=== PATIENT | female | born 1935 | race Caucasian/White ===

== ENCOUNTER 2016-07-06 10:37 | Inpatient (IN) | payer MEDICARE ==
[2016-07-06] MEDS ORDERED: NS 1,000 ML IV ONE (10:47)
[2016-07-06] MEDS ORDERED: DILTIAZEM 25 MG/5 ML VIAL IV ONE (10:59)
--- NOTE | 2016-07-06 11:04 | EDPRACDOC ---
- General Information Chief Complaint: Neuro Symptoms/Deficits Stated Complaint: FALL At HOME Time Seen by Provider: 07/06/16 10:38 Information Source: Patient, Photo Checker Mode Of Arrival: Car Home Medications: Home Medications Glipizide [Glucotrol] 5 mg PO BIDAC 04/10/13 Biotin 1 mg PO DAILY 04/02/16 ClonazePAM [Klonopin] 0.5 mg PO BID PRN 04/02/16 Levothyroxine [Synthroid, Levoxyl] 75 mcg PO DAILY 04/02/16 Liraglutide [Victoza 18 mg/3 ml Pen] 1.2 mg SQ DAILY@0800 04/02/16 Sertraline HCl [Zoloft] 75 mg PO DAILY 04/02/16 Valsartan [Diovan] 160 mg PO BID 04/02/16 Apixaban [Eliquis] 5 mg PO BID 05/31/16 Atorvastatin Calcium [Lipitor] 20 mg PO QHS 05/31/16 Diclofenac Sodium [Voltaren 1% Topical Gel] 2 gm TOP QID 05/31/16 Diltiazem HCl [Diltiazem 24Hr ER] 240 mg PO DAILY 05/31/16 Furosemide [Lasix] 40 mg PO BID 05/31/16 Potassium Chloride 20 meq PO DAILY 05/31/16 Insulin Glargine,Hum.rec.anlog [Annamaria Rdz] 20 unit SQ HS #3 insuln.pen Metoprolol Tartrate 25 mg PO BID 07/06/16 Allergies/Adverse Reactions: Allergies Allergy/AdvReac Type Severity Reaction Status Date / Time ephedrine [Ephedrine] Allergy Unknown Unknown/See Verified 07/06/16 16:28 Comments ketorolac tromethamine Allergy Unknown Unknown/See Verified 07/06/16 16:28 [From Toradol] Comments oxycodone HCl [From Endocet] Allergy Unknown Unknown/See Verified 07/06/16 16:28 Comments OXYCODONE WITH ACETAMINOPHIN Allergy Unknown Unknown/See Uncoded 07/06/16 16:28 Comments STERAPRED Allergy Unknown Unknown/See Uncoded 07/06/16 16:28 Comments - History of Present 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 STATES SHE REMEMBERS GOING TO THE BATHROOM THIS AM BUT THEN DOES NOT REMEMBER WALKING TO THE KITCHEN. PT WAS FOUND ON THE FLOOR BY WITH LEFT SHOULDER PAIN, CONTUSION TO RIGHT ELBOW AND CONTUSION TO FOREHEAD. PT REMEMBERS NONE OF THE ACTIVITIES LEADING TO THE FALL OR THE FALL. PT AWAKE, ALERT AND ORIENTED UPON ARRIVAL. 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 Denies: Depression, Substance Use Disorder Systemic History: Reports: Diabetes, Hypothyroidism Surgical History: Reports: Cholecystectomy, Hysterectomy, Cardiac Catheterization - Family Medical History Reports: Hypertension (father), Cancer (sister breast, mother ovarian), Cardiac Disorders (father) - Social Medical History Smoking Status: Never smoker Social History: Denies: Substance Use Disorder EDM Review of Systems - Review of Systems ROS Negative Except as Marked: Yes All systems reviewed and were negative except as marked - Physical Exam Constitutional: Alert Oriented to: Time, Person, Place Last recorded Vital Signs: Oxygen Pulse Oxygen Saturation O2 Device Oxygen Flow Rate Fraction of Inspired Oxygen ( FIO2) - HEENT Head: Abrasion, Swelling, Tender Eye Exam: Normal (PERRL, EOMI, Sclera white) Oropharynx: Normal (Pharynx:Moist without exudate,Gums-no swelling) Tympanic Membrane: Normal Nose: No Symptoms Reported (septum midline) Neck: Normal (FROM, trachea at midline) - Respiratory/Cardiovascular Respiratory: Normal - CTA (BBS clear to auscultation without adventitious sounds ) Cardiovascular: Tachycardia, Irregular - GI Auscultation: Normal (NABS) Palpation: Normal (Soft,No rebound or guarding, non distended) Tenderness: Non tender Redding's Sign: Negative Rectal Exam: Deferred - Musculoskeletal Back: Normal (Non-Tender) Extremities: Other (ABRASION NOTED TO RIGHT ELBOW, PAIN IN LEFT SHOULDER.) - Integumentary Skin: Normal, Warm, Dry Lymphatics: Normal (no adenopathy) - Neurologic Memory Impaired: Normal Motor Function: Normal (Normal tone, Pulses 2+ No cyanosis or edema, FROM) Cranial Nerve: Normal (CN II-X11 intact sensation, strength 5/5) Cerebellar: Normal Mood Description: Normal Perception: Normal - Differential Diagnosis Dehydration, Electrolyte Disorder, Other - Results 07/06/16 11:00 07/06/16 11:00 - EKG EKG #1 EKG Time: 10:50 -: Yes EKG interpreted by me Rate: bpm: [address] [place]: Normal Rhythm: Afib (WITH RVR) Block: None Hypertrophy: None ST: Nonsp - Departure Disposition: Admit IP To This Hospital Condition: Stable Final Diagnosis: Syncope and collapse Humerus distal fracture Qualifiers: Encounter type: initial encounter Fracture type: closed Fracture morphology: unspecified fracture morphology Laterality: left Qualified Code(s): S42.402A - Unspecified fracture of lower end of left humerus, initial encounter for closed fracture Education/Counseling Given To: Patient Education/Counseling Given Regarding: Diagnosis, Treatment, Prognosis, Follow Up Decision to Admit Time: 16:30 Decision to admit date: 07/06/16 Decision to admit: from ED - Physician Consulted Hospitalist Time Called: 16:30 Provider Called: Yomaira Jorgensen Time Hospital Cleaning Specialist Returned Call: 16:30
[2016-07-06 11:27] LABS: AUTOMATED BASOPHIL 0.5 % (0-2); AUTOMATED EOSINOPHIL 1.2 % (0-5); AUTOMATED LYMPH 14.1 % (17-44); AUTOMATED MONOCYTE 6.2 % (3-10); MPV 8.6 fL (7.4-10.4)
[2016-07-06 11:56] LABS: BLOOD UREA NITROGEN 50 MG/DL (7-17); CALCIUM 9.6 MG/DL (8.4-10.2); CALCULATED OSMOLALITY 278 MOs/Kg (270-290); CHLORIDE 92 mEq/L (98-107); CPK TOTAL WITH POSSIBLE MB 24 IU/L (30-134); GLUCOSE 153 MG/DL (70-99); SODIUM LEVEL 136 mEq/L (137-146); TOTAL PROTEIN 7.6 G/DL (6.3-8.2)
--- NOTE | 2016-07-06 12:02 | DIRPT ---
CLINICAL DATA: Syncope and fall today. Initial encounter. EXAM: CT HEAD WITHOUT CONTRAST TECHNIQUE: Contiguous axial images were obtained from the base of the skull through the vertex without intravenous contrast. COMPARISON: Head CT scan 04/10/2013. Brain MRI 04/12/2013. FINDINGS: Remote left cerebellar infarct is identified. The brain is atrophic with some chronic microvascular ischemic change. No evidence of acute intracranial abnormality including hemorrhage, infarct, mass lesion, mass effect, midline shift or abnormal extra-axial fluid collection is seen. Small, chronic right mastoid effusion is identified. Imaged paranasal sinuses and mastoid air cells are otherwise clear. The calvarium is intact. IMPRESSION: No acute abnormality. Remote left cerebellar infarct. Atrophy and chronic microvascular ischemic change. Electronically Signed By: Dillon Islas M.D. On: 07/06/2016 11:59
[2016-07-06 12:11] LABS: PARTIAL THROMB. TIME 24.7 SEC (22-35); PT-INR 1.1
--- NOTE | 2016-07-06 12:23 | DIRPT ---
CLINICAL DATA: Syncopal episode today. Fell and injured right leg. EXAM: RIGHT TIBIA AND FIBULA - 2 VIEW COMPARISON: None. FINDINGS: The knee and ankle joints are maintained. Mild degenerative changes. Chondrocalcinosis noted at the knee. Moderate vascular calcifications. But no acute fracture. IMPRESSION: No acute fracture. Electronically Signed By: Cora Florez M.D. On: 07/06/2016 12:20
--- NOTE | 2016-07-06 12:24 | DIRPT ---
CLINICAL DATA: Syncopal episode. Fall. Left shoulder pain. EXAM: LEFT SHOULDER - 2+ VIEW COMPARISON: None. FINDINGS: There is a nondisplaced fracture of the surgical neck of the left proximal humerus. There is no glenohumeral dislocation. There are mild degenerative changes of the acromioclavicular joint. IMPRESSION: 1. Nondisplaced fracture of the surgical neck of the left proximal humerus. Electronically Signed By: Sherri Gee On: 07/06/2016 12:21
--- NOTE | 2016-07-06 12:26 | DIRPT ---
CLINICAL DATA: Syncopal episode this morning. EXAM: CHEST 1 VIEW COMPARISON: Chest x-ray 06/16/2016 FINDINGS: The heart is enlarged but stable. There is mild tortuosity and calcification of the thoracic aorta. Streaky left basilar atelectasis and small left effusion. The right lung is clear. The bony thorax is intact. IMPRESSION: Stable cardiac enlargement. Left basilar atelectasis and small left effusion. Electronically Signed By: Cora Florez M.D. On: 07/06/2016 12:23
[2016-07-06] MEDS ORDERED: MORPHINE 4 MG/ML INJECTION IV ONE (13:28)
[2016-07-06] MEDS ORDERED: ALBUMIN, AGGREGATED 5 MCI V IV ONE (13:34)
[2016-07-06] MEDS ORDERED: XENON-133 10 MCI INHALATION INH ONE (13:34)
--- NOTE | 2016-07-06 14:23 | DIRPT ---
CLINICAL DATA: Fall, syncope. Concern for pulmonary embolism. EXAM: NUCLEAR MEDICINE VENTILATION AND PERFUSION SCAN TECHNIQUE: Perfusion images were obtained in multiple projections after intravenous injection of radiopharmaceutical. Sequential dynamic ventilation images were obtained in standard planar projections following inhalation of radiopharmaceutical. RADIOPHARMACEUTICALS: 9.4 mCi Xe 133 and 5.5 mCi Tc99m MAA IV COMPARISON: Radiograph 07/06/2016 FINDINGS: Ventilation: No focal ventilation defect. No air trapping. Perfusion: No wedge-shaped peripheral perfusion defects to suggest acute pulmonary embolism. IMPRESSION: No evidence of pulmonary embolism. Electronically Signed By: Dwain Rangel M.D. On: 07/06/2016 14:21
[2016-07-06 14:49] LABS: LEUKOCYTES/URINE TRACE (NEGATIVE); NITRITE/URINE NEG (NEGATIVE); RBC/URINE 0-2 (0-5); URINE OCCULT BLOOD NEG (NEG/TRACE)
[2016-07-06] MEDS ORDERED: GLUCOSE (ORAL GEL) 15 GM TUBE PO PRN (15:21)
[2016-07-06] MEDS ORDERED: Albuterol/Ipratropium Neb 3 ML NEB NEB PRN (15:21)
[2016-07-06] MEDS ORDERED: ONDANSETRON HCL 4 MG/2 ML VIAL IV PRN ×2 (15:21)
[2016-07-06] MEDS ORDERED: DEXTROSE 25 GM/50 ML PFS IV PRN (15:21)
[2016-07-06] MEDS ORDERED: GLUCAGON 1 MG VIAL SQ PRN (15:21)
[2016-07-06] MEDS ORDERED: Aluminum;Magnesium;Simethicone 30 ML UDC PO PRN (15:21)
[2016-07-06] MEDS ORDERED: SODIUM CHLORIDE 0.9% 3 ML FLUSH FLUSH PRN (15:21)
[2016-07-06] MEDS ORDERED: MAGNESIUM HYDROXIDE 30 ML BOTTLE PO PRN (15:21)
--- NOTE | 2016-07-06 15:30 | HISTPHYS ---
- Chief Complaint Patient had a syncopal event at home and fractured her left humerus. This occurred today - History of Present Illness PT PRESENTS AFTER SHE HAD A SYNCOPAL EPISODE THIS AM. STATES SHE REMEMBERS GOING TO THE BATHROOM THIS AM BUT THEN DOES NOT REMEMBER WALKING TO THE KITCHEN. PT WAS FOUND ON THE FLOOR BY WITH LEFT SHOULDER PAIN, CONTUSION TO RIGHT ELBOW AND CONTUSION TO FOREHEAD. PT REMEMBERS NONE OF THE ACTIVITIES LEADING TO THE FALL OR THE FALL. PT AWAKE, ALERT AND ORIENTED UPON ARRIVAL. Duration: Minutes Presyncopal phase:: Reports: Headache Syncopal phase:: Reports: With exertion Postsyncopal phase:: Reports: Rapid recovery Prehospital care: Reports: Glucose, IV, Moniter History of: Reports: Atrial Fibrillation Associated Signs/Symptoms: Reports: None 81-year-old female presents the emergency department history of atrial fibrillation with RVR and with new episode of syncope. Patient does not remember any of the event but said she walked into the kitchen said good morning and then said better catch me on falling fell over. She injured her left humerus left side of her face and scraped her right arm. In the emergency department she was fully evaluated and found to be in atrial fibrillation with rapid ventricular response. She required IV diltiazem to bring down her heart rate. She was also noted to be in renal failure with a creatinine of 2.5. Given her signs symptoms and laboratory data patient will be admitted into the hospital for further evaluation and management of atrial fibrillation with rapid ventricular response and acute renal failure. - Medical History Cardiac History: Reports: Atrial Fibrillation, Hypertension, Cardiac Catheterization, Hypercholesterolemia, Valvular Heart Disease (AORTIC STENOSIS severe), Other (ECHO 06/15/2016 INDICATION: CHF HEIGHT: 162.6 cm (5 ft 4.0 in) WEIGHT: 84.8 kg (187.0 lbs) BP: 163/70 BSA: 1.372114 m MEASUREMENTS -------- ---- 2D RVIDd: 3.5 cm LVOT Diam: 2.0 cm IVSd: 1.5 cm LVIDd: 3.9 cm LVPWd: 1.3 cm LVIDs: 2.8 cm EF(Teich): 53.56 % LA Diam: 4.6 cm EF Biplane: 54.20 % LAESV MOD A4C: 64.1 ml LAESV MOD A2C: 141.3 ml LAESV Index (A-L): 57.55 ml/m -------- ---- DOPPLER MV E Vance: 1.27 m/s MV A Vance: 0.00 m/s MV PHT: 67.12 ms MVA By PHT: 3.28 cm LVOT Vmax: 0.96 m/s AV Vmax: 3.77 m/s TR Vmax: 2.86 m/s TR maxP mmHg RVSP: 42.80 mmHg FINDINGS ------- Procedure:2D images, m-mode, color and spectral Doppler were obtained and reviewed. ECG rhythm:Atrial fibrillation. Study quality:This was a technically adequate study. Left Ventricle:There is mild concentric left ventricular hypertrophy. Overall left ventricular systolic function is normal with, an EF between 55 - 60 %. Right Ventricle:The right ventricle is normal in size and function. Left Atrium:The left atrium is normal in size. The left atrium is mildly dilated. Left atrium is moderately dilated by volume. Right Atrium:The right atrium is normal in size and function. The right atrium is mildly enlarged. Aortic Valve:The aortic valve is trileaflet and appears structurally normal. There is severe aortic valve sclerosis. There is mild aortic regurgitation. There is moderate-to- severe aortic stenosis present. The aortic valve area by continuity equation is 0.8 cm square. Peak/mean gradient across the valve is 57/37 mmHg. Mitral Valve:Normal appearing mitral valve. Mild mitral annular calcification present. Mild mitral regurgitation is present. Tricuspid Valve:The tricuspid valve appears structurally normal. Mild tricuspid regurgitation present. The right ventricular systolic pressure, as measured by Doppler, is 43 mmhg. Pulmonic Valve:The pulmonic valve is normal. Trace/mild (physiologic) pulmonic regurgitation. Aorta:The aortic root, ascending aorta and aortic arch appear normal. IVC:Normal inferior vena cava with normal inspiratory collapse. Pericardium:There is no pericardial effusion. CONCLUSIONS 1. Overall left ventricular systolic function is normal with, an EF between 55 - 60 %. 2. The left atrium is mildly dilated. 3. There is hagrfcnp-[id number]-[id number] aortic stenosis present. 4. Peak/mean gradient across the valve is 57/37 mmHg. 5. Mild mitral regurgitation is present. 6. Mild tricuspid regurgitation present. 7. The right ventricular systolic pressure, as measured by Doppler, is 43 mmhg. 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 Denies: Depression, Substance Use Disorder - Surgical History Reports: Cholecystectomy, Hysterectomy, Cardiac Catheterization - Medictions/Allergies Allergies ephedrine [Ephedrine] Allergy (Unknown, Verified 07/06/16 11:52) Unknown/See Comments SPEEDS UP HEART ketorolac tromethamine [From Toradol] Allergy (Unknown, Verified 07/06/16 11:52) Unknown/See Comments TEETH CHATTER, CHILLS, LEG JUMPING oxycodone HCl [From Endocet] Allergy (Unknown, Verified 07/06/16 11:52) Unknown/See Comments pt states not having allergy to only acetaminophen OXYCODONE WITH ACETAMINOPHIN Allergy (Unknown, Uncoded 07/06/16 11:52) Unknown/See Comments STERAPRED Allergy (Unknown, Uncoded 07/06/16 11:52) Unknown/See Comments TACHYCARDIA Current Medication List: Reviewed Home Medications Glipizide [Glucotrol] 5 mg PO BIDAC 04/10/13 Biotin 1 mg PO DAILY 04/02/16 ClonazePAM [Klonopin] 0.5 mg PO BID PRN 04/02/16 Levothyroxine [Synthroid, Levoxyl] 75 mcg PO DAILY 04/02/16 Liraglutide [Victoza 18 mg/3 ml Pen] 1.2 mg SQ DAILY@0800 04/02/16 Sertraline HCl [Zoloft] 75 mg PO DAILY 04/02/16 Valsartan [Diovan] 160 mg PO BID 04/02/16 Apixaban [Eliquis] 5 mg PO BID 05/31/16 Atorvastatin Calcium [Lipitor] 20 mg PO QHS 05/31/16 Diclofenac Sodium [Voltaren 1% Topical Gel] 2 gm TOP QID 05/31/16 Diltiazem HCl [Diltiazem 24Hr ER] 240 mg PO DAILY 05/31/16 Furosemide [Lasix] 40 mg PO BID 05/31/16 Potassium Chloride 20 meq PO DAILY 05/31/16 Insulin Glargine,Hum.rec.anlog [Annamaria Rdz] 20 unit SQ HS #3 insuln.pen Metoprolol Tartrate 25 mg PO BID 07/06/16 - Family History Reports: Hypertension (father), Cancer (sister breast, mother ovarian), Cardiac Disorders (father) - Social History Travel Outside of [place] in the Last 3 Months?: No Lives: with Spouse Smoking Status: Never smoker Social History: Denies: Alcohol Use, Substance Use Disorder - Review of Systems Constitutional: negative: Chills, Fever, Diaphoresis, Fatigue, Loss of Appetite , Weakness, Weight loss Eyes: No Symptoms Reported (No blurry vision, visual changes, eye pain, or eye redness.) Ears: No Symptoms Reported (No ear pain or discharge) Nose: No Symptoms Reported (No nasal discharge/congestion or bleeding) Mouth: No Symptoms Reported (No oropharyngeal lesions or erythema) Throat/Neck: No Symptoms Reported (No throat pain or swelling.No oropharyngeal lesions or erythema.) Respiratory: No Symptoms Reported (No cough, wheezing, or shortness of breath.) Cardiovascular: Syncope. negative: Chest Pain, Cyanosis, Edema, Orthopnea, Palpitations, PND Gastrointestinal: No Symptoms Reported (No abdominal pain, nausea, vomiting, diarrhea, constipation, or bloody stool.) Genitourinary: No Symptoms Reported (No dysuria or hematuria.) Neurological: No Symptoms Reported (No headache, dizziness, seizures, or focal weakness.) Musculoskeletal:: No Symptoms Reported Integumentary: No Symptoms Reported (no rashes or lesions) Allergic/Immunologic: No Symptoms Reported (no rashes or lesions) Hematologic: No Symptoms Reported (No chronic anemia, bleeding, or easy bruising.), Other (Lymphatics- no lymph node swelling or pain.) Endocrine: No Symptoms Reported Psychiatric: No Symptoms Reported (Fully oriented, with normal and appropriate affect.) - Physical Exam Vital Signs: Initial Vitals Temperature 97.5 F 07/06/16 10:37 Pulse Rate 127 H 07/06/16 10:37 Respiratory Rate 18 07/06/16 10:37 Blood Pressure 96/65 L 07/06/16 10:37 Pulse Oxygen Saturation 99 07/06/16 10:37 Constitutional: Alert. negative: Agitated, Confused Oriented to: Time, Person, Place - HEENT Head: Normal (normocephalic, atraumatic.), Other (No cervical lymphadenopathy. No supraclavicular lymphadenopathy. Neck: No palpable mass, supple , trachea midline.) Eye: Normal (pupils equal, reactive to light, and round; EOMI, Sclera white) Oropharynx: Normal (Pharynx: Moist without exudate,Gums-no swelling, No oropharyngeal lesions or erythema, Mucous membranes are dry.) Nose: No Symptoms Reported (septum midline, Nares patent, without discharge or bleeding.) Respiratory: Normal - CTA (Clear to auscultation bilaterally. No wheezing, rales , rhonchi. Chest wall movements are symmetric. No use of accessory muscles to breathe.) Cardiovascular: Normal (RRR , Normal S1, S2. No murmurs, rubs, or gallops. PMI non-displaced. Carotids: no carotid bruits. No bradycardia or tachycardia. DP pulses 2+ bilaterally.) - GI Auscultation: Normal (normal active sounds) Palpation: Normal (Soft,non distended,nontender. No hepatosplenomegaly.) Tenderness: Non tender (No rebound or guarding) Redding's Sign: Negative - Musculoskeletal Back: Normal (Non-Tender) Extremities: Normal (Normal tone, DP pulses 2+ bilaterally, No cyanosis or edema bilaterally, FROM bilaterally.) - Integumentary Skin: Normal (Clean, dry, and intact. No rashes. No lesions.) Lymphatics: Normal (No cervical lymphadenopathy. No supraclavicular lymphadenopathy.) - Neurologic Memory Impaired: Normal Motor Function: Normal (Motor 5/5 throughout.Normal tone, Pulses 2+ No cyanosis or edema, FROM) Cranial Nerve: Normal Cerebellar: Normal (Babinski: toes downgoing bilaterally. Intact Finger to nose. Sensory grossly intact to light touch. Intact rapid alternating movements bilaterally. No pronator drift.) Mood Description: Normal (Fully oriented. Normal and appropriate affect.) - Focused CV Perfusion Exam Vital Signs: Last Vital Signs Temp 97.5 F 07/06/16 10:37 Pulse 90 07/06/16 13:08 Resp 18 07/06/16 13:08 BP 112/59 L 07/06/16 13:08 Pulse Ox 95 07/06/16 13:08 - Lab Results Laboratory Results - last 24 hr 07/06/16 07/06/16 07/06/16 11:00 11:00 11:00 WBC 12.8 H RBC 5.37 Hgb 13.8 Hct 41.8 MCV 78 L MCH 25.7 L MCHC 33.0 RDW 15.4 H Plt Count 156 MPV 8.6 Neut % (Auto) 78.0 H Lymph % (Auto) 14.1 L [place] % (Auto) 6.2 Eos % (Auto) 1.2 Baso % (Auto) 0.5 Absolute Neuts (auto) 9.98 H Absolute Lymphs (auto) 1.79 PT 11.0 INR 1.1 APTT 24.7 Sodium 136 L Potassium 4.0 Chloride 92 L Carbon Dioxide 27 Anion Gap 21 H BUN 50 H Creatinine 2.50 H Estimated GFR (MDRD) 19 L Glucose 153 H Calculated Osmolality 278 Lactic Acid Calcium 9.6 Total Bilirubin 0.8 AST 34 ALT 27 Alkaline Phosphatase 155 Creatine Kinase 24 L Troponin I 0.02 Gbz-E-Pzmurqachyq Pept 4310 H Total Protein 7.6 Albumin 4.0 Urine Color Urine Clarity Urine pH Ur Specific [place] Urine Protein Urine Glucose (UA) Urine Ketones Urine Occult Blood Urine Nitrite Urine Bilirubin Urine Urobilinogen Ur Leukocyte Esterase Urine RBC Urine WBC Ur Epithelial Cells Urine Bacteria Hyaline Casts Urine Mucus 07/06/16 07/06/16 11:00 14:22 WBC RBC Hgb Hct MCV MCH MCHC RDW Plt Count MPV Neut % (Auto) Lymph % (Auto) [place] % (Auto) Eos % (Auto) Baso % (Auto) Absolute Neuts (auto) Absolute Lymphs (auto) PT INR APTT Sodium Potassium Chloride Carbon Dioxide Anion Gap BUN Creatinine Estimated GFR (MDRD) Glucose Calculated Osmolality Lactic Acid 2.0 Calcium Total Bilirubin AST ALT Alkaline Phosphatase Creatine Kinase Troponin I Ctm-S-Rtomanqkzzq Pept Total Protein Albumin Urine Color Yellow Urine Clarity Hazy Urine pH 6.0 Ur Specific [place] 1.020 Urine Protein Neg Urine Glucose (UA) Neg Urine Ketones Neg Urine Occult Blood Neg Urine Nitrite Neg Urine Bilirubin Neg Urine Urobilinogen <2.0 Ur Leukocyte Esterase Trace H Urine RBC 0-2 Urine WBC 5-10 H Ur Epithelial Cells 3+ Urine Bacteria 2+ H Hyaline Casts 10-20 H Urine Mucus Sm amt - Diagnostic Findings EXAM: NUCLEAR MEDICINE VENTILATION AND PERFUSION SCAN TECHNIQUE: Perfusion images were obtained in multiple projections after intravenous injection of radiopharmaceutical. Sequential dynamic ventilation images were obtained in standard planar projections following inhalation of radiopharmaceutical. RADIOPHARMACEUTICALS: 9.4 mCi Xe 133 and 5.5 mCi Tc99m MAA IV COMPARISON: Radiograph 07/06/2016 FINDINGS: Ventilation: No focal ventilation defect. No air trapping. Perfusion: No wedge-shaped peripheral perfusion defects to suggest acute pulmonary embolism. IMPRESSION: No evidence of pulmonary embolism. Electronically Signed By: Dwain Rangel M.D. On: 07/06/2016 14:21 LEFT SHOULDER - 2+ VIEW COMPARISON: None. FINDINGS: There is a nondisplaced fracture of the surgical neck of the left proximal humerus. There is no glenohumeral dislocation. There are mild degenerative changes of the acromioclavicular joint. IMPRESSION: 1. Nondisplaced fracture of the surgical neck of the left proximal humerus. Electronically Signed By: Sherri Gee On: 07/06/2016 12:21 COMPARISON: Chest x-ray 06/16/2016 FINDINGS: The heart is enlarged but stable. There is mild tortuosity and calcification of the thoracic aorta. Streaky left basilar atelectasis and small left effusion. The right lung is clear. The bony thorax is intact. IMPRESSION: Stable cardiac enlargement. Left basilar atelectasis and small left effusion. Electronically Signed By: Cora Florez M.D. On: 07/06/2016 12:23 COMPARISON: Chest x-ray 06/16/2016 FINDINGS: The heart is enlarged but stable. There is mild tortuosity and calcification of the thoracic aorta. Streaky left basilar atelectasis and small left effusion. The right lung is clear. The bony thorax is intact. IMPRESSION: Stable cardiac enlargement. Left basilar atelectasis and small left effusion. Electronically Signed By: Cora Florez M.D. On: 07/06/2016 12:23 CT HEAD WITHOUT CONTRAST TECHNIQUE: Contiguous axial images were obtained from the base of the skull through the vertex without intravenous contrast. COMPARISON: Head CT scan 04/10/2013. Brain MRI 04/12/2013. FINDINGS: Remote left cerebellar infarct is identified. The brain is atrophic with some chronic microvascular ischemic change. No evidence of acute intracranial abnormality including hemorrhage, infarct, mass lesion, mass effect, midline shift or abnormal extra-axial fluid collection is seen. Small, chronic right mastoid effusion is identified. Imaged paranasal sinuses and mastoid air cells are otherwise clear. The calvarium is intact. IMPRESSION: No acute abnormality. Remote left cerebellar infarct. Atrophy and chronic microvascular ischemic change. Electronically Signed By: Dillon Islas M.D. - Assessment (1) Syncope and collapse R55 - SYNCOPE AND COLLAPSE Acute Present on Admission: Yes Etiology is currently unclear but may be related to severe aortic stenosis, or atrial fibrillation with rapid ventricular response triggered by dehydration and renal failure. Will admit the patient to the hospital and hydrated will check orthostatics. Currently I favor severe aortic stenosis. (2) Severe aortic stenosis I35.0 - NONRHEUMATIC AORTIC (VALVE) STENOSIS Chronic Present on Admission: Yes Well known cause of syncope and in this patient I am very concerned about her current valvular situation. I have consulted Dr. MILES. (3) Atrial fibrillation with rapid ventricular response I48.91 - UNSPECIFIED ATRIAL FIBRILLATION Acute Currently rate controlled after a dose of diltiazem in the emergency department Dr. MILES has been consulted. (4) Acute kidney injury N17.9 - ACUTE KIDNEY FAILURE, UNSPECIFIED Acute Present on Admission: Yes Etiology is unclear will monitor closely. Will hydrate patient and recheck BMP in a.m.. (5) Insulin dependent diabetes mellitus E11.9 - TYPE 2 DIABETES MELLITUS WITHOUT COMPLICATIONS; Z79.4 - PHARMACY CLINICAL SPECIALIST ( CURRENT) USE OF INSULIN Chronic Patient with long history of poorly controlled diabetes. Lantus was increased last hospitalization. Patient appears to be significantly noncompliant at home since her blood sugars are well controlled in the hospital during last admission. (6) Humerus distal fracture S42.409A - UNSP FRACTURE OF LOWER END OF UNSP HUMERUS, INIT FOR CLOS FX Acute Present on Admission: Yes Qualifiers: Encounter type: initial encounter Fracture type: closed Fracture morphology: unspecified fracture morphology Laterality: left Qualified Code( s): S42.402A - Unspecified fracture of lower end of left humerus, initial encounter for closed fracture Dr. HURD to evaluate patient. She is currently in a sling. Also get Physical therapy to see the patient. (7) Hypertension I10 - ESSENTIAL (PRIMARY) HYPERTENSION Chronic Present on Admission: Yes Qualifiers: Hypertension type: essential hypertension Qualified Code(s): I10 - Essential (primary) hypertension Relatively stable in the emergency room. Continue medications and monitor. (8) Hypothyroidism E03.9 - HYPOTHYROIDISM, UNSPECIFIED Chronic Qualifiers: Hypothyroidism type: acquired Qualified Code(s): E03.9 - Hypothyroidism, unspecified TSH abnormally high in March will recheck today. - Plan Patient will be admitted into the hospital will evaluate Etiology of her syncope and monitor her closely. I have consulted Dr. HURD regarding her left humerus fracture and Dr. MILES regarding her aortic stenosis and atrial fibrillation. Case Care Discussed with: Patient, Consultants, Family, Nursing Staff Total Time: 55 minutes Critical Care: No Couseling Time (>50% in counseling/coordination): No
[2016-07-06] MEDS ORDERED: HYDROmorphone 1 MG INJECTION IV ONE (15:38)
--- NOTE | 2016-07-06 15:45 | PCM.ORTHCO ---
Consultation Date: 07/06/16 Requesting Physician: Yomaira Jorgensen D[employer]end [employer]osit Voucher Clerk: Darci Pedraza Reason for Consult: Fracture (Left proximal humerus) - History of Present Illness 81-year-old [id number]-[id number] female presents to the emergency department with chief complaint of left shoulder pain after a syncopal episode with mechanical fall at home this morning. Patient was evaluated by the medicine service who decided to proceed with admission for her syncopal episode and multiple medical comorbidities stabilization. Radiographs of the left shoulder revealed a proximal humerus fracture and Orthopedics was consulted for appropriate management. Patient denies any numbness, tingling, or history of significant shoulder pain. She reports the pain is significantly worse with any type of motion and improved with rest. Patient denies any elbow pain. Chief Complaint: Patient had a syncopal event at home and fractured her left humerus. This occurred today - Past Medical and Surgical History Cardiac History: Reports: No Significant History, Atrial Fibrillation, Hypertension, Cardiac Catheterization, Hypercholesterolemia, Valvular Heart Disease (AORTIC STENOSIS) Respiratory History: Reports: No Significant History, Pneumonia GI/ History: Reports: No Significant History, Urinary Tract Infection Systemic History: Reports: No Significant History, Diabetes, Hypothyroidism Musculoskeletal History: Reports: No Significant History, Arthritis Psychological History: Reports: No Significant History, Anxiety. Denies: Depression, Alcoholism, Substance Use Disorder Neurological History: Reports: No Significant History, Cerebrovascular Accident (Left hemorrhagic Pica stroke 2012) Past Surgical History: Reports: No Significant History, Cholecystectomy, Hysterectomy, Cardiac Catheterization Allergies ephedrine [Ephedrine] Allergy (Unknown, Verified 07/06/16 11:52) Unknown/See Comments SPEEDS UP HEART ketorolac tromethamine [From Toradol] Allergy (Unknown, Verified 07/06/16 11:52) Unknown/See Comments TEETH CHATTER, CHILLS, LEG JUMPING oxycodone HCl [From Endocet] Allergy (Unknown, Verified 07/06/16 11:52) Unknown/See Comments pt states not having allergy to only acetaminophen OXYCODONE WITH ACETAMINOPHIN Allergy (Unknown, Uncoded 07/06/16 11:52) Unknown/See Comments STERAPRED Allergy (Unknown, Uncoded 07/06/16 11:52) Unknown/See Comments TACHYCARDIA Home Medications Glipizide [Glucotrol] 5 mg PO BIDAC 04/10/13 Biotin 1 mg PO DAILY 04/02/16 ClonazePAM [Klonopin] 0.5 mg PO BID PRN 04/02/16 Levothyroxine [Synthroid, Levoxyl] 75 mcg PO DAILY 04/02/16 Liraglutide [Victoza 18 mg/3 ml Pen] 1.2 mg SQ DAILY@0800 04/02/16 Sertraline HCl [Zoloft] 75 mg PO DAILY 04/02/16 Valsartan [Diovan] 160 mg PO BID 04/02/16 Apixaban [Eliquis] 5 mg PO BID 05/31/16 Atorvastatin Calcium [Lipitor] 20 mg PO QHS 05/31/16 Diclofenac Sodium [Voltaren 1% Topical Gel] 2 gm TOP QID 05/31/16 Diltiazem HCl [Diltiazem 24Hr ER] 240 mg PO DAILY 05/31/16 Furosemide [Lasix] 40 mg PO BID 05/31/16 Potassium Chloride 20 meq PO DAILY 05/31/16 Insulin Glargine,Hum.rec.anlog [Toarnoldo Solmontez] 20 unit SQ HS #3 insuln.pen Metoprolol Tartrate 25 mg PO BID 07/06/16 - Social History Travel Outside of [place] in the Last 3 Months?: No Lives: with Spouse Smoking Status: Never smoker Social History: Denies: Alcohol Use, Substance Use Disorder - Family History Reports: No Significant History, Hypertension (father), Cancer (sister breast, mother ovarian), Cardiac Disorders (father) - Review of Systems Yes All systems reviewed and were negative except as marked Musculoskeletal:: Other (See HPI) - Physical Exam Vital Signs: Initial Vitals Temperature 97.5 F 07/06/16 10:37 Pulse Rate 127 H 07/06/16 10:37 Respiratory Rate 18 07/06/16 10:37 Blood Pressure 96/65 L 07/06/16 10:37 Pulse Oxygen Saturation 99 07/06/16 10:37 Constitutional: No apparent distress, Somnolent Oriented to: Time, Person - HEENT Head: Abrasion (Near left orbit) Eye: Normal (pupils equal, reactive to light, and round; EOMI, Sclera white) Respiratory: Other (Symmetric nonlabored breathing bilaterally) Cardiovascular: Other (Regular rate and rhythm) - GI Tenderness: Non tender Rectal Exam: Deferred - Musculoskeletal Extremities: Other (Left upper extremity: No deformity noted. Skin is intact. Moderate swelling about the proximal humerus. Sensory intact to light touch over the median, radial, ulnar, axillary, and musculocutaneous nerve distributions. Motor median, radial, ain, PIN intact. Palpable radial pulse. Brisk cap refill in all digits. Provocative testing and range of motion of the shoulder deferred secondary to pain. No tenderness to palpation about the elbow. Range of motion limited only secondary to shoulder pain.) - Integumentary Skin: Normal - Lab Results Laboratory Results - last 24 hr 07/06/16 07/06/16 07/06/16 11:00 11:00 11:00 WBC 12.8 H RBC 5.37 Hgb 13.8 Hct 41.8 MCV 78 L MCH 25.7 L MCHC 33.0 RDW 15.4 H Plt Count 156 MPV 8.6 Neut % (Auto) 78.0 H Lymph % (Auto) 14.1 L Howell % (Auto) 6.2 Eos % (Auto) 1.2 Baso % (Auto) 0.5 Absolute Neuts (auto) 9.98 H Absolute Lymphs (auto) 1.79 PT 11.0 INR 1.1 APTT 24.7 Sodium 136 L Potassium 4.0 Chloride 92 L Carbon Dioxide 27 Anion Gap 21 H BUN 50 H Creatinine 2.50 H Estimated GFR (MDRD) 19 L Glucose 153 H Calculated Osmolality 278 Lactic Acid Calcium 9.6 Total Bilirubin 0.8 AST 34 ALT 27 Alkaline Phosphatase 155 Creatine Kinase 24 L Troponin I 0.02 Mgq-C-Ydzcmlmzqdg Pept 4310 H Total Protein 7.6 Albumin 4.0 Urine Color Urine Clarity Urine pH Ur Specific Roca Urine Protein Urine Glucose (UA) Urine Ketones Urine Occult Blood Urine Nitrite Urine Bilirubin Urine Urobilinogen Ur Leukocyte Esterase Urine RBC Urine WBC Ur Epithelial Cells Urine Bacteria Hyaline Casts Urine Mucus 07/06/16 07/06/16 11:00 14:22 WBC RBC Hgb Hct MCV MCH MCHC RDW Plt Count MPV Neut % (Auto) Lymph % (Auto) Howell % (Auto) Eos % (Auto) Baso % (Auto) Absolute Neuts (auto) Absolute Lymphs (auto) PT INR APTT Sodium Potassium Chloride Carbon Dioxide Anion Gap BUN Creatinine Estimated GFR (MDRD) Glucose Calculated Osmolality Lactic Acid 2.0 Calcium Total Bilirubin AST ALT Alkaline Phosphatase Creatine Kinase Troponin I Lbn-L-Dlwlligpnzw Pept Total Protein Albumin Urine Color Yellow Urine Clarity Hazy Urine pH 6.0 Ur Specific Roca 1.020 Urine Protein Neg Urine Glucose (UA) Neg Urine Ketones Neg Urine Occult Blood Neg Urine Nitrite Neg Urine Bilirubin Neg Urine Urobilinogen <2.0 Ur Leukocyte Esterase Trace H Urine RBC 0-2 Urine WBC 5-10 H Ur Epithelial Cells 3+ Urine Bacteria 2+ H Hyaline Casts 10-20 H Urine Mucus Sm amt - Diagnostic Findings EXAM: LEFT SHOULDER - 2+ VIEW COMPARISON: None. FINDINGS: There is a nondisplaced fracture of the surgical neck of the left proximal humerus. There is no glenohumeral dislocation. There are mild degenerative changes of the acromioclavicular joint. IMPRESSION: 1. Nondisplaced fracture of the surgical neck of the left proximal humerus. - Assessment/Plan (1) Closed fracture of left proximal humerus S4 - UNSP FRACTURE OF UPPER END OF LEFT HUMERUS, INIT FOR CLOS FX Acute Present on Admission: Yes initial encounter Case Care Discussed with: Patient, Consultants, Nursing Staff Plan: 81-year-old [id number] female with left proximal humerus fracture consistent with a 1 part with minimal displacement. No significant malalignment and amenable to conservative treatment. Recommend strict shoulder immobilization at this time. Would recommend immediate risk, elbow, and hand range of motion. Sling for comfort. Pain medication per emergency department. Return to clinic after discharge within 7-10 days for repeat radiographs and clinical examination. Okay to begin pendulum exercises once the pain is tolerable.
[2016-07-06 15:56] LABS: CPK TOTAL WITH POSSIBLE MB 25 IU/L (30-134)
[2016-07-06] MEDS ORDERED: LIRAGLUTIDE 18 MG/3ML (0.6 MG/0.1 ML) PEN SQ SCH (16:00)
[2016-07-06] MEDS ORDERED: GLARGINE INSULIN (LANTUS) 100 UNITS/ML PEN SQ SCH (16:00)
[2016-07-06] MEDS ORDERED: FUROSEMIDE 40 MG TAB PO SCH (16:00)
[2016-07-06] MEDS ORDERED: DICLOFENAC 1% TOPICAL GEL 100 GM TUBE TOP SCH (16:00)
[2016-07-06] MEDS: NS 1,000 ML IV SCH (16:44)
--- NOTE | 2016-07-06 16:49 | PCM.CARDCO ---
Consultation Date: 07/06/16 Requesting Physician: Yomaira Jorgensen Bat Carrier: Ren Anderson Consult Reason: Other (aortic stenosis) - History of Present Illness Chief Complaint: Patient had a syncopal event at home and fractured her left humerus. This occurred today - Past Medical and Surgical History Cardiac History: Reports: Atrial Fibrillation, Hypertension, Cardiac Catheterization, Hypercholesterolemia, Valvular Heart Disease (AORTIC STENOSIS) Respiratory History: Reports: Pneumonia GI/ History: Reports: Urinary Tract Infection Systemic History: Reports: Diabetes, Hypothyroidism Musculoskeletal History: Reports: Arthritis Psychological History: Reports: Anxiety. Denies: Depression, Substance Use Disorder Neurological History: Reports: Cerebrovascular Accident (Left hemorrhagic Pica stroke 2012) Past Surgical History: Reports: Cholecystectomy, Hysterectomy, Cardiac Catheterization Allergies ephedrine [Ephedrine] Allergy (Unknown, Verified 07/06/16 16:28) Unknown/See Comments SPEEDS UP HEART ketorolac tromethamine [From Toradol] Allergy (Unknown, Verified 07/06/16 16:28) Unknown/See Comments TEETH CHATTER, CHILLS, LEG JUMPING oxycodone HCl [From Endocet] Allergy (Unknown, Verified 07/06/16 16:28) Unknown/See Comments pt states not having allergy to only acetaminophen OXYCODONE WITH ACETAMINOPHIN Allergy (Unknown, Uncoded 07/06/16 16:28) Unknown/See Comments STERAPRED Allergy (Unknown, Uncoded 07/06/16 16:28) Unknown/See Comments TACHYCARDIA Home Medications Glipizide [Glucotrol] 5 mg PO BIDAC 04/10/13 Biotin 1 mg PO DAILY 04/02/16 ClonazePAM [Klonopin] 0.5 mg PO BID PRN 04/02/16 Levothyroxine [Synthroid, Levoxyl] 75 mcg PO DAILY 04/02/16 Liraglutide [Victoza 18 mg/3 ml Pen] 1.2 mg SQ DAILY@0800 04/02/16 Sertraline HCl [Zoloft] 75 mg PO DAILY 04/02/16 Valsartan [Diovan] 160 mg PO BID 04/02/16 Apixaban [Eliquis] 5 mg PO BID 05/31/16 Atorvastatin Calcium [Lipitor] 20 mg PO QHS 05/31/16 Diclofenac Sodium [Voltaren 1% Topical Gel] 2 gm TOP QID 05/31/16 Diltiazem HCl [Diltiazem 24Hr ER] 240 mg PO DAILY 05/31/16 Furosemide [Lasix] 40 mg PO BID 05/31/16 Potassium Chloride 20 meq PO DAILY 05/31/16 Insulin Glargine,Hum.rec.anlog [Annamaria Rdz] 20 unit SQ HS #3 insuln.pen Metoprolol Tartrate 25 mg PO BID 07/06/16 - Social History Smoking Status: Never smoker Social History: Denies: Substance Use Disorder - Family History Reports: Hypertension (father), Cancer (sister breast, mother ovarian), Cardiac Disorders (father) - Review of Systems Constitutional: negative: Chills, Fever, Diaphoresis, Fatigue, Loss of Appetite , Weakness, Weight loss - Physical Exam Constitutional: Alert Oriented to: Time, Person, Place Exam: Last Vital Signs Temp 97.5 F 07/06/16 10:37 Pulse 101 07/06/16 16:10 Resp 16 07/06/16 16:02 BP 113/56 L 07/06/16 16:02 Pulse Ox 93 07/06/16 16:02 Intake & Output 07/06/16 07/06/16 07/06/16 07:59 15:59 23:59 Intake Total 1000 Balance 1000 - HEENT Head: Abrasion, Swelling, Tender Eye: Normal (PERRL, EOMI, Sclera white) Oropharynx: Normal (Pharynx:Moist without exudate,Gums-no swelling) Tympanic Membrane: Normal Nose: No Symptoms Reported (septum midline) - Respiratory/Cardiovascular Respiratory: Normal - CTA (BBS clear to auscultation without adventitious sounds ) Cardiovascular: Other (Murmur of aortic stenosis heard 3/6 systolic murmur at the aortic area.) - GI Auscultation: Normal (NABS) Palpation: Normal (Soft,No rebound or guarding, non distended) Tenderness: Non tender Rectal Exam: Deferred - Musculoskeletal Back: Normal (Non-Tender) Extremities: Other (ABRASION NOTED TO RIGHT ELBOW, PAIN IN LEFT SHOULDER.) - Integumentary Skin: Normal, Warm, Dry Lymphatics: Normal (no adenopathy) - Neurologic Memory Impaired: Normal Cerebellar: Normal Mood Description: Normal Perception: Normal - Other Exam Other Exam Findings: Abdomen nontender. No cyanosis clubbing or pedal edema on the extremity evaluation. Neurological and musculoskeletal examination nonfocal. Fracture of the left upper extremity is addressed by orthopedic service. - Assessment/Plan (1) Acute kidney injury N17.9 - ACUTE KIDNEY FAILURE, UNSPECIFIED Acute Comment: This is being monitored by the hospitalist service. The creatinine clearance is very low and is worrisome. I have withheld diuretic therapy at this time to see if that will help. Also I am withholding diuretic therapy to make sure that the patient does not have any hypotension because of combination of hypotension and aortic stenosis can be not good for the patient (2) Closed fracture of left proximal humerus S42.202A - UNSP FRACTURE OF UPPER END OF LEFT HUMERUS, INIT FOR CLOS FX Acute initial encounter Comment: Managed by orthopedic surgery fortunately does not appear like she is going to need any surgical intervention. (3) Syncope and collapse R55 - SYNCOPE AND COLLAPSE Acute Comment: I would like to make sure that her blood pressure is on the higher side because she may be having postural hypotension which is a terrible thing to happen in a patient of her age with significant aortic stenosis. Also withholding the diuretic therapy will help the preload reduction and may optimize her blood pressure better. (4) Atrial fibrillation with rapid ventricular response I48.91 - UNSPECIFIED ATRIAL FIBRILLATION Acute Comment: We will monitor heart rate. Also anticoagulation and issue will be addressed during this hospital stay in view of the syncopal episode. (5) Aortic stenosis I35.0 - NONRHEUMATIC AORTIC (VALVE) STENOSIS Chronic nonrheumatic I35.0 - Nonrheumatic aortic (valve) stenosis (6) Hypertension I10 - ESSENTIAL (PRIMARY) HYPERTENSION Chronic essential hypertension I10 - Essential (primary) hypertension Comment: We will make sure it is optimized and we will take particular precaution to make sure it is not on the lower side. Case Care Discussed with: Patient, Consultants
[2016-07-06] MEDS ORDERED: Vaccine Screening Complete SCH (17:00)
[2016-07-06 17:08] VITALS: BMI 32.4
[2016-07-06] MEDS: DICLOFENAC 1% TOPICAL GEL 100 GM TUBE TOP SCH ×2 (17:15→21:17)
[2016-07-06] MEDS: GLIPIZIDE 5 MG TAB PO SCH (17:16)
[2016-07-06] MEDS: SODIUM CHLORIDE 0.9% 3 ML FLUSH FLUSH SCH (17:16)
[2016-07-06] MEDS: REGULAR INSULIN 100 UNITS/ML - 3 ML VIAL SQ SCH ×2 (17:21→21:12)
[2016-07-06] MEDS: ENOXAPARIN 100 MG PFS SQ SCH (20:20)
[2016-07-06] MEDS ORDERED: [UNRECOGNIZED DRUG - OTHER] SQ SCH (21:00)
[2016-07-06] MEDS ORDERED: APIXABAN 5 MG TABLET PO SCH (21:00)
[2016-07-06] MEDS ORDERED: INSULIN GLARGINE HUM REC ANLOG 20 UNIT SQ SCH (21:00)
[2016-07-06] MEDS: VALSARTAN 160 MG TAB PO SCH (21:11)
[2016-07-06] MEDS: METOPROLOL TARTRATE 25 MG TAB PO SCH (21:11)
[2016-07-06] MEDS: GLARGINE INSULIN (LANTUS) 100 UNITS/ML PEN SQ SCH (21:11)
[2016-07-06] MEDS ORDERED: GUAIFENESIN 600 MG LA TAB PO PRN (23:07)
[2016-07-06] MEDS ORDERED: BENZONATATE 100 MG PERLES PO PRN (23:07)
[2016-07-07] MEDS: NS 1,000 ML IV SCH ×3 (01:04→20:11)
[2016-07-07] MEDS: ACETAMINOPHEN 325 MG/TAB TABLET PO PRN (02:07)
[2016-07-07 05:23] LABS: AUTOMATED BASOPHIL 0.5 % (0-2); AUTOMATED EOSINOPHIL 2.1 % (0-5); AUTOMATED LYMPH 39.6 % (17-44); AUTOMATED MONOCYTE 7.4 % (3-10); AUTOMATED NEUTROPHIL 50.4 % (45-76)
[2016-07-07 05:34] LABS: BLOOD UREA NITROGEN 44 MG/DL (7-17); CALCIUM 8.7 MG/DL (8.4-10.2); CALCULATED OSMOLALITY 272 MOs/Kg (270-290); CHLORIDE 97 mEq/L (98-107); GLUCOSE 89 MG/DL (70-99); SODIUM LEVEL 136 mEq/L (137-146)
[2016-07-07] MEDS: SODIUM CHLORIDE 0.9% 3 ML FLUSH FLUSH SCH ×2 (05:57→17:40)
[2016-07-07] MEDS: LEVOTHYROXINE 75 MCG (0.075 MG) TAB PO SCH (05:57)
[2016-07-07] MEDS: GLIPIZIDE 5 MG TAB PO SCH ×2 (05:57→17:36)
[2016-07-07] MEDS: REGULAR INSULIN 100 UNITS/ML - 3 ML VIAL SQ SCH ×4 (06:02→23:02)
[2016-07-07] MEDS: LIRAGLUTIDE 18 MG/3ML (0.6 MG/0.1 ML) PEN SQ SCH (08:21)
[2016-07-07] MEDS: DICLOFENAC 1% TOPICAL GEL 100 GM TUBE TOP SCH ×4 (08:21→23:04)
[2016-07-07] MEDS: POTASSIUM CHLORIDE 20 MEQ TAB PO SCH (08:22)
[2016-07-07] MEDS: SERTRALINE HCL 50 MG TAB PO SCH (08:23)
[2016-07-07] MEDS: METOPROLOL TARTRATE 25 MG TAB PO SCH ×2 (08:23→23:03)
[2016-07-07] MEDS ORDERED: BIOTIN 1 MG PO SCH (09:00)
--- NOTE | 2016-07-07 14:27 | PCM.CARD ---
- Subjective Current Assessment: No New Symptoms (Patient denies any symptoms from a cardiovascular standpoint and her heart rates are better controlled now. She appears comfortable.) Vital Signs: Last Vital Signs Temp 97.6 F 07/07/16 08:00 Pulse 109 07/07/16 12:00 Resp 20 07/07/16 08:00 BP 114/73 07/07/16 08:00 Pulse Ox 95 07/07/16 08:00 EKG Rhythm: Atrial Fibrillation Heart Sounds: S1 & S2 (Heart sounds irregular lungs bilateral air entry and no pedal edema.) - Assessment/Plan (1) Acute kidney injury Acute N17.9 - ACUTE KIDNEY FAILURE, UNSPECIFIED Present on Admission: Yes Comment/Plan: Stable at this time. Followed by hospitalist. (2) Closed fracture of left proximal humerus Acute S42.202A - UNSP FRACTURE OF UPPER END OF LEFT HUMERUS, INIT FOR CLOS FX Present on Admission: Yes initial encounter Comment/Plan: Managed medically by the orthopedic service. (3) Syncope and collapse Acute R55 - SYNCOPE AND COLLAPSE Present on Admission: Yes Comment/Plan: I am looking forward to cut down her medications especially her hypertension medications and would prefer to keep her blood pressure higher than what it is now preferably around 130 mm of mercury systolic. I discussed this with the patient at length. Benefits were discussed. I am very worried about her borderline blood pressure and postural hypotension especially in view of the fact that she has aortic stenosis (4) Atrial fibrillation with rapid ventricular response Acute I48.91 - UNSPECIFIED ATRIAL FIBRILLATION Comment/Plan: Her heart rates are better and we will monitor him closely. Hopefully holding the diuretic will help keep her well hydrated and get her heart rate better. I think if there are her risks for falls then she must come off anticoagulation and go on full-strength aspirin. We will review this on a day-to-day basis. (5) Aortic stenosis Chronic I35.0 - NONRHEUMATIC AORTIC (VALVE) STENOSIS nonrheumatic I35.0 - Nonrheumatic aortic (valve) stenosis Comment/Plan: Stable at this time. Murmur heard. (6) Hypertension Chronic I10 - ESSENTIAL (PRIMARY) HYPERTENSION Present on Admission: Yes essential hypertension I10 - Essential (primary) hypertension Comment/Plan: As mentioned above
[2016-07-07] MEDS: VALSARTAN 160 MG TAB PO SCH ×2 (15:53→22:59)
--- NOTE | 2016-07-07 17:29 | GENMEDPROG ---
Subjective Note: Pleasant elderly female admitted yesterday with humerus fracture. She had had a syncopal event. She has known aortic stenosis and this was very concerning. She is admitted for further evaluation and management of syncope. Notes Reviewed: Yes Events from last night noted and discussed with Clinical Staff Current Medication List: Reviewed Currently: Reports: SOB. Denies: Sputum, Nausea and Vomiting, Abdominal Pain, Ambulating DVT Prophylaxis: Yes - Physical Examination Vital Signs and I&O: Last Vital Signs Temp 97.1 F L 07/07/16 15:06 Pulse 100 07/07/16 15:06 Resp 18 07/07/16 15:06 BP 147/79 07/07/16 15:06 Pulse Ox 97 07/07/16 15:06 Oxygen Pulse Oxygen Saturation 97 O2 Device Room Air Oxygen Flow Rate Fraction of Inspired Oxygen ( FIO2) Intake & Output 07/04/16 07/05/16 07/06/16 07/07/16 23:59 23:59 23:59 23:59 Intake Total 1360 1790 Output Total 700 Balance 1360 1090 Patient's weight 85.729 kg 85.729 kg General: Alert, Oriented x3, No acute distress, Well appearing, Well nourished HEENT: Normal (Normocephalic, atraumatic;EOMI.Sclera white, Nares patent, without discharge or bleeding. No oropharyngeal lesions or erythema. Mucous membranes are dry.) Neck: Non-tender, Full range of motion, Normal Trachea alignment, Normal inspection (No cervical lymphadenopathy. No supraclavicular lymphadenopathy.), No Masses palpable, Supple Lymphatics: Normal (no adenopathy) Respiratory: Normal - CTA (BBS clear to auscultation without adventitious sounds ) Cardiovascular: Regular rate and rhythm (No bradycardia or tachycardia), Normal S1, No Gallops,Rubs/Murmurs, Normal S2, Good Pedal Pulses (DP pulses 2+ bilaterally) GI: Normal bowel sounds (normal active sounds), Soft (non-distended), Non tender , No hepatospenomegaly, No masses Extremities/Musculoskeletal: Other (Arm insulin due to fractured humerus) Skin: Warm,Dry and Intact, No rashes, No significant lesion Neurological: Strength at 5/5 X4 ext (Motor 5/5 throughout.), Normal tone, Cranial nerves 3-12 NL ( 2-12 grossly intact.) Lab/DI/Studies Reviewed: Abnormal Lab Results 07/06/16 07/07/16 07/07/16 20:56 04:55 04:55 MCV 78 L MCH 26.0 L RDW 15.8 H Sodium 136 L Chloride 97 L BUN 44 H Creatinine 2.10 H Estimated GFR (MDRD) 23 L POC Capillary Glucose 204 H 07/07/16 07/07/16 12:21 16:31 MCV MCH RDW Sodium Chloride BUN Creatinine Estimated GFR (MDRD) POC Capillary Glucose 285 H 245 H - Assessment (1) Syncope and collapse Acute R55 - SYNCOPE AND COLLAPSE Comment/Plan: Etiology is currently unclear but may be related to severe aortic stenosis, or atrial fibrillation with rapid ventricular response triggered by dehydration and renal failure. Currently I favor severe aortic stenosis and Etiology of syncope. Await further Cardiology input. (2) Severe aortic stenosis Chronic I35.0 - NONRHEUMATIC AORTIC (VALVE) STENOSIS Comment/Plan: Well known cause of syncope and in this patient I am very concerned about her current valvular situation. Will keep blood pressures fairly high I have held her valsartan (Diovan) (3) Atrial fibrillation with rapid ventricular response Acute I48.91 - UNSPECIFIED ATRIAL FIBRILLATION Comment/Plan: Appreciate Cardiology input and management. (4) Acute kidney injury Acute N17.9 - ACUTE KIDNEY FAILURE, UNSPECIFIED Comment/Plan: Etiology is unclear will monitor closely. Creatinine down to 2.1 with hydration will continue to monitor. (5) Insulin dependent diabetes mellitus Chronic E11.9 - TYPE 2 DIABETES MELLITUS WITHOUT COMPLICATIONS; Z79.4 - DETENTION (CURRENT) USE OF INSULIN Comment/Plan: Continue home insulin dosing, fingerstick blood glucoses a.c. and HS with sliding scale insulin coverage.. (6) Humerus distal fracture Acute S42.409A - UNSP FRACTURE OF LOWER END OF UNSP HUMERUS, INIT FOR CLOS FX Qualifiers: Encounter type: initial encounter Fracture type: closed Fracture morphology: unspecified fracture morphology Laterality: left Qualified Code( s): S42.402A - Unspecified fracture of lower end of left humerus, initial encounter for closed fracture Comment/Plan: Appreciate Dr. HURD help will continue left arm in strict sling. Physical therapy to work with patient per his recommendations. (7) Hypertension Chronic I10 - ESSENTIAL (PRIMARY) HYPERTENSION Qualifiers: Hypertension type: essential hypertension Qualified Code(s): I10 - Essential (primary) hypertension Comment/Plan: Relatively stable in the emergency room. Continue medications and monitor. (8) Hypothyroidism Chronic E03.9 - HYPOTHYROIDISM, UNSPECIFIED Qualifiers: Hypothyroidism type: acquired Qualified Code(s): E03.9 - Hypothyroidism, unspecified Comment/Plan: TSH abnormally high in March will recheck today. (9) Wound of right lower extremity Acute S81.801A - UNSPECIFIED OPEN WOUND, RIGHT LOWER LEG, INITIAL ENCOUNTER Qualifiers: Encounter type: initial encounter Qualified Code(s): S81.801A - Unspecified open wound, right lower leg, initial encounter Comment/Plan: Looks like it might be an old ulceration will have physical therapy evaluate. - Plan Continue present plan appreciate Cardiology input appreciate Dr. HURD assistance 2. Disposition Plan: May need inpatient skilled therapy if patient cannot function at home. Case Care Discussed with: Patient, Consultants, Nursing Staff Education/Counseling Given To: Patient Education/Counseling Given Regarding: Diagnosis, Treatment, Prognosis, Disposition Plan Total Time: 45 minutes. Critical Care: No Couseling Time (>50% in counseling/coordination): No
[2016-07-07] MEDS: ENOXAPARIN 100 MG PFS SQ SCH (17:39)
[2016-07-07] MEDS: GLARGINE INSULIN (LANTUS) 100 UNITS/ML PEN SQ SCH (23:00)
[2016-07-08] MEDS: NS 1,000 ML IV SCH ×2 (02:43→10:30)
[2016-07-08] MEDS: SODIUM CHLORIDE 0.9% 3 ML FLUSH FLUSH SCH ×2 (05:41→18:40)
[2016-07-08] MEDS: LEVOTHYROXINE 75 MCG (0.075 MG) TAB PO SCH (05:42)
[2016-07-08] MEDS: ACETAMINOPHEN 325 MG/TAB TABLET PO PRN (07:35)
[2016-07-08] MEDS: GLIPIZIDE 5 MG TAB PO SCH ×2 (07:35→18:39)
[2016-07-08] MEDS: REGULAR INSULIN 100 UNITS/ML - 3 ML VIAL SQ SCH ×3 (07:35→18:38)
[2016-07-08] MEDS: LIRAGLUTIDE 18 MG/3ML (0.6 MG/0.1 ML) PEN SQ SCH (10:22)
[2016-07-08] MEDS: DICLOFENAC 1% TOPICAL GEL 100 GM TUBE TOP SCH ×3 (10:22→18:38)
[2016-07-08] MEDS: METOPROLOL TARTRATE 25 MG TAB PO SCH (10:25)
[2016-07-08] MEDS: POTASSIUM CHLORIDE 20 MEQ TAB PO SCH (10:25)
[2016-07-08] MEDS: SERTRALINE HCL 50 MG TAB PO SCH (10:26)
--- NOTE | 2016-07-08 15:11 | PCM.CARD ---
- Subjective Current Assessment: No New Symptoms (Patient feels much better and tells me that she has ambulated some. Her blood pressure is better.) Vital Signs: Last Vital Signs Temp 97.7 F 07/08/16 10:39 Pulse 97 07/08/16 14:57 Resp 18 07/08/16 10:39 BP 158/85 07/08/16 10:39 Pulse Ox 98 07/08/16 10:39 EKG Rhythm: Atrial Fibrillation (Heart sounds irregular lungs bilateral air entry and no pedal edema.) Heart Sounds: S1 & S2 - Assessment/Plan (1) Acute kidney injury Acute N17.9 - ACUTE KIDNEY FAILURE, UNSPECIFIED Present on Admission: Yes Comment/Plan: Appears stable. At this point. (2) Closed fracture of left proximal humerus Acute S42.202A - UNSP FRACTURE OF UPPER END OF LEFT HUMERUS, INIT FOR CLOS FX Present on Admission: Yes initial encounter Comment/Plan: Medical management. (3) Syncope and collapse Acute R55 - SYNCOPE AND COLLAPSE Present on Admission: Yes Comment/Plan: Stable and ambulating well. (4) Atrial fibrillation with rapid ventricular response Acute I48.91 - UNSPECIFIED ATRIAL FIBRILLATION Comment/Plan: In view of syncope and borderline blood pressure I would hesitate to send her home on full anticoagulation at this time. I am not sure about gait and also about her stability and propensity for falls. My advice would be to keep her on full-strength aspirin and she tells me that in the next week or 2 she will see her elementary librarian as an outpatient in [place] and discussed these issues. Benefits and risks of this approach was explained to her and she vocalized understanding. (5) Aortic stenosis Chronic I35.0 - NONRHEUMATIC AORTIC (VALVE) STENOSIS nonrheumatic I35.0 - Nonrheumatic aortic (valve) stenosis Comment/Plan: Stable at this time (6) Hypertension Chronic I10 - ESSENTIAL (PRIMARY) HYPERTENSION Present on Admission: Yes essential hypertension I10 - Essential (primary) hypertension Comment/Plan: Blood pressure is stable and she is asymptomatic ambulating. - Plan We will DC her from inpatient followup. Please do not hesitate to call us if there are any questions in a cardiovascular management.
[2016-07-08] MEDS ORDERED: NS 1,000 ML IV SCH (15:31)
--- NOTE | 2016-07-08 15:48 | PCM.DCS92 ---
- Final/Secondary Discharge Diagnosis (1) Syncope and collapse Acute R55 - SYNCOPE AND COLLAPSE Present on Admission: Yes Comment: Likely related to with atrial fibrillation and aortic stenosis. (2) Atrial fibrillation with rapid ventricular response Acute I48.91 - UNSPECIFIED ATRIAL FIBRILLATION Present on Admission: Yes Comment: Appreciate Cardiology input and management. Rate controlled. (3) Acute kidney injury Acute N17.9 - ACUTE KIDNEY FAILURE, UNSPECIFIED Present on Admission: Yes Comment: Etiology is unclear will monitor closely. Creatinine down to 2.1 with hydration will continue to monitor. Improved with gentle IV hydration (4) Closed fracture of left proximal humerus Acute S42.202A - UNSP FRACTURE OF UPPER END OF LEFT HUMERUS, INIT FOR CLOS FX Present on Admission: Yes initial encounter Plan/Goal/Comment: Continue splint followup with 40 (5) Severe aortic stenosis Chronic I35.0 - NONRHEUMATIC AORTIC (VALVE) STENOSIS Present on Admission: Yes Comment: Follow by Cardiology (6) Wound of right lower extremity Acute S81.801A - UNSPECIFIED OPEN WOUND, RIGHT LOWER LEG, INITIAL ENCOUNTER initial encounter S81.801A - Unspecified open wound, right lower leg, initial encounter Comment: Looks like it might be an old ulceration will have physical therapy evaluate. (7) Insulin dependent diabetes mellitus Chronic E11.9 - TYPE 2 DIABETES MELLITUS WITHOUT COMPLICATIONS; Z79.4 - [facility] (CURRENT) USE OF INSULIN Present on Admission: Yes Comment: Blood sugar under poor control, hemoglobin A1c 12.7 Discharge Disposition: Discharge w/ Home Health Discharge Condition: Improved Cognitive Discharge Status: Unimpaired Fuctional Discharge Status: Walker Assistance Physician Follow up/Referrals: Melany Aguila MD [Primary Care Provider] - One Week Darci Pedraza MD [Staff Physician] - One Week New Prescriptions: Tramadol HCl [Rybix Odt] 50 mg PO Q6-8H PRN #60 tab.rapdis PRN Reason: Pain O2 Device: Room Air Diet at Discharge: Cardiac, Heart Healthy, Low Salt, 2200 Calorie, High Fiber Activity: As Tolerated, Limited, No Heavy Lifting Call Office For: Worsening Symptoms, Fever over 101 F Discontinue use of:: Alcohol, All Illegal Substances, All Types of Tobacco - DC Summary Notes Hospital Course Note:: Discharge summary on patient named DINA BEYER admitted to [facility] on 07/06/16 by Yomaira Jorgensen MD. Date of discharge is []. Patient was initially brought to emergency room on July 06 for evaluation of syncopal episode resulting in the fall and left shoulder injury. Please refer the admission for further details. Upon arrival in ED patient was found to be in atrial fibrillation with rapid ventricular rate. Further ED workup was undertaken head CT showed no acute stroke but remote left cerebellar infarct. Chest x-ray showed no acute cardio pulmonary disease. X-ray of the left shoulder showed proximal humerus fracture. V/Q scan was low probability for PE. Patient was found in renal failure with creatinine 2.5 and BUN 50. She was admitted to monitor bed Lasix was withheld and gentle IV hydration was provided. Her renal function has by the time of discharge improved. Given history of moderate to severe aortic stenosis and new syncopal episode patient seen evaluated by Cardiology, medical therapy was optimized and her AFib remained controlled. She was seen consultation by Orthopedics and splint was recommended. Her TSH was elevated and dose of Synthroid was up titrated. She was seen by physical therapy and by the time of discharge patient is able to walk more than 100 feet. During hospital stay patient has remained hemodynamically stable and there was no further episodes of syncope or near syncope. Her blood sugar remained under good control with no episodes of hypoglycemia. Her hemoglobin A1c was 12.7. Patient required up titration of pain regimen to keep shoulder pain under control. On July 08 patient was cleared for discharge by it trainer and in clinically stable condition she has been discharged home to the care of the family and her PCP. Referral to home health agency was made. Total Time: 45 min. Code: 51890 (>30min.) - Physical Exam Vital Signs: Last Vital Signs Temp 97.7 F 07/08/16 10:39 Pulse 97 07/08/16 14:57 Resp 18 07/08/16 10:39 BP 158/85 07/08/16 10:39 Pulse Ox 98 07/08/16 10:39 Oxygen Pulse Oxygen Saturation 98 O2 Device Room Air Oxygen Flow Rate Fraction of Inspired Oxygen ( FIO2) Constitutional: Alert Oriented to: Time, Person, Place - HEENT Head: Abrasion, Swelling, Tender Eye: Normal (PERRL, EOMI, Sclera white) Oropharynx: Normal (Pharynx:Moist without exudate,Gums-no swelling) Tympanic Membrane: Normal ENT EAC: Normal Nose: No Symptoms Reported (septum midline) - Respiratory/Cardiovascular Respiratory: Normal - CTA (BBS clear to auscultation without adventitious sounds ) Cardiovascular: Normal, Systolic murmur - GI Auscultation: Normal (NABS) Palpation: Normal (Soft,No rebound or guarding, non distended) Tenderness: Non tender Rectal Exam: Deferred - Exam Deferred: Yes - Musculoskeletal Back: Normal (Non-Tender) Extremities: Edema, Other (ABRASION NOTED TO RIGHT ELBOW, PAIN IN LEFT SHOULDER. ) - Integumentary Skin: Normal, Warm, Dry Lymphatics: Normal (no adenopathy) - Neurologic Memory Impaired: Normal Motor Function: Normal Cranial Nerve: Normal Cerebellar: Normal Mood Description: Normal, Anxious Perception: Normal - Other Exam Other Exam Findings: Allergies ephedrine [Ephedrine] Allergy (Unknown, Verified 07/06/16 16:28) Unknown/See Comments SPEEDS UP HEART ketorolac tromethamine [From Toradol] Allergy (Unknown, Verified 07/06/16 16:28) Unknown/See Comments TEETH CHATTER, CHILLS, LEG JUMPING oxycodone HCl [From Endocet] Allergy (Unknown, Verified 07/06/16 16:28) Unknown/See Comments pt states not having allergy to only acetaminophen OXYCODONE WITH ACETAMINOPHIN Allergy (Unknown, Uncoded 07/06/16 16:28) Unknown/See Comments STERAPRED Allergy (Unknown, Uncoded 07/06/16 16:28) Unknown/See Comments TACHYCARDIA Last Vital Signs Temp 97.7 F 07/08/16 10:39 Pulse 97 07/08/16 14:57 Resp 18 07/08/16 10:39 BP 158/85 07/08/16 10:39 Pulse Ox 98 07/08/16 10:39 07/07/16 04:55 07/07/16 04:55 Abnormal Lab Results 07/07/16 07/07/16 07/08/16 16:31 22:14 05:55 POC Capillary Glucose 245 H 160 H 130 H 07/08/16 10:43 POC Capillary Glucose 234 H
[2016-07-08 17:36] VITALS: BP 179/96; TEMP 97.4
[2016-07-08] MEDS ORDERED: TRAMADOL HCL 50 MG TAB PO SCH (18:00)
[2016-07-08] MEDS: ENOXAPARIN 100 MG PFS SQ SCH (18:40)
[2016-07-08 20:23] VITALS: PULSE 97
== END 2016-07-08 19:00 | disposition home health service (06) | DRG 683 ==
LOC: ED 10:37 → PCU 15:21
PROVIDERS: ADMIT Hospitalist; ATTEND Hospitalist
DX: N17.9 Acute kidney failure, unspecified (principal); L97.919 Non-pressure chronic ulcer of unspecified part of right lower leg with unspecified severity; I48.91 Unspecified atrial fibrillation; R55 Syncope and collapse; I10 Essential (primary) hypertension; E03.9 Hypothyroidism, unspecified; S42.402A Unspecified fracture of lower end of left humerus, initial encounter for closed fracture; I35.0 Nonrheumatic aortic (valve) stenosis; S81.801A Unspecified open wound, right lower leg, initial encounter; E11.9 Type 2 diabetes mellitus without complications; W19.XXXA Unspecified fall, initial encounter; Z79.4 Long term (current) use of insulin; E78.00 Pure hypercholesterolemia, unspecified; Z79.899 Other long term (current) drug therapy
CPT/HCPCS: 36415; 70450; 71010; 78582; 80048; 80053; 81001; 82043; 82550; 82962; 83036; 83605; 83880; 84443; 84484; 85025; 85610; 85730; 87040; 93005; 96361; 96372; 96374; 96375; 97161; 97165; 99284; A9540; A9558; G0237; J1170; J1650; J2270; J3490

== ENCOUNTER 2016-07-19 13:18 | Inpatient (IN) | payer MEDICARE ==
[2016-07-19 13:51] LABS: AUTOMATED BASOPHIL 0.5 % (0-2); AUTOMATED EOSINOPHIL 0.4 % (0-5); AUTOMATED LYMPH 8.8 % (17-44); AUTOMATED MONOCYTE 6.4 % (3-10); AUTOMATED NEUTROPHIL 83.9 % (45-76); MPV 8.6 fL (7.4-10.4)
--- NOTE | 2016-07-19 13:55 | EDPRACDOC ---
[id number] Provider: 07/19/16 13:30 Information Source: Patient Home Medications: Home Medications Glipizide [Glucotrol] 5 mg PO BIDAC 04/10/13 Biotin 1 mg PO DAILY 04/02/16 ClonazePAM [Klonopin] 0.5 mg PO BID PRN 04/02/16 Liraglutide [Victoza 18 mg/3 ml Pen] 1.2 mg SQ DAILY@0800 04/02/16 Sertraline HCl [Zoloft] 75 mg PO DAILY 04/02/16 Valsartan [Diovan] 160 mg PO BID 04/02/16 Apixaban [Eliquis] 5 mg PO BID 05/31/16 Atorvastatin Calcium [Lipitor] 20 mg PO QHS 05/31/16 Diclofenac Sodium [Voltaren 1% Topical Gel] 2 gm TOP QID 05/31/16 Diltiazem HCl [Diltiazem 24Hr ER] 240 mg PO DAILY 05/31/16 Furosemide [Lasix] 40 mg PO BID 05/31/16 Potassium Chloride 20 meq PO DAILY 05/31/16 Insulin Glargine,Hum.rec.anlog [Toujeo Solostar] 20 unit SQ HS #3 insuln.pen Metoprolol Tartrate 25 mg PO BID 07/06/16 Levothyroxine Sodium [Synthroid] 88 mcg PO DAILY #90 tab 07/08/16 Tramadol HCl [Rybix Odt] 50 mg PO Q6-8H PRN #60 tab.rapdis 07/08/16 Allergies/Adverse Reactions: Allergies Allergy/AdvReac Type Severity Reaction Status Date / Time ephedrine [Ephedrine] Allergy Unknown Unknown/See Verified 07/19/16 13:25 Comments ketorolac tromethamine Allergy Unknown Unknown/See Verified 07/19/16 13:25 [From Toradol] Comments oxycodone HCl [From Endocet] Allergy Unknown Unknown/See Verified 07/19/16 13:25 Comments OXYCODONE WITH ACETAMINOPHIN Allergy Unknown Unknown/See Uncoded 07/19/16 13:25 Comments STERAPRED Allergy Unknown Unknown/See Uncoded 07/19/16 13:25 Comments - History of Present 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 SHE STATES HER HEARD HER CRY OUT BUT SHE DOES NOT REMEMBER THIS. SHE FELL BACK [place]RAW[place] AND NOW HAS LOW BACK PAIN. 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 Denies: Depression, Substance Use Disorder Systemic History: Reports: Diabetes, Hypothyroidism. Denies: Cancer Surgical History: Reports: Cholecystectomy, Hysterectomy, Cardiac Catheterization, Tonsillectomy/Adnoidectomy - Family Medical History Reports: Hypertension (father), Cancer (sister breast, mother ovarian), Cardiac Disorders (father) - Social Medical History Smoking Status: Never smoker Social History: Denies: Substance Use Disorder ETOH: None Substance Abuse: None Lives With: Family Lives In: Home EDM Review of Systems - Review of Systems ROS Negative Except as Marked: Yes All systems reviewed and were negative except as marked Constitutional: No Symptoms Reported. negative: Fever, Chills, Weakness, Fatigue, Loss of Appetite Eyes: No Symptoms Reported. negative: Redness, Blurred Vision, Double Vision, Discharge, Pain, Light Sensitive, Photophobia Ears: No Symptoms Reported. negative: Pain, Hearing Loss, Drainage, Ear Pulling Throat: No Symptoms Reported. negative: Pain, Swelling Nose: No Symptoms Reported. negative: Congestion, Bleeding, Discharge, Injection, Swelling, Deformity, Ecchymosis, Tender, Abrasion, Laceration Mouth: No Symptoms Reported. negative: Pain, Drooling Respiratory: No Symptoms Reported. negative: Cough, Brassy Cough, Barky Cough, Shortness of Breath, Wheezing, Hemoptysis Cardiovascular: Syncope. negative: Chest Pain, Cyanosis, Edema, Orthopnea, Palpitations, PND, Skin Mottling Gastrointestinal: No Symptoms Reported. negative: Pain, Constipation, Nausea, Vomiting, Diarrhea, Melena, Formula Intolerance Genitourinary: No Symptoms Reported. negative: Dysuria, Hematuria, Frequency, Discharge, Bleeding, Testicular Pain, Neurological: No Symptoms Reported. negative: Headache, Dizziness, Seizure, Numbness, Weakness, Speech Difficulty, Gait Difficulty Musculoskeletal: Back, Knee. negative: Arm, Ankle, Chestwall, Elbow, Forearm, Femur, Foot, Hand, Hip, Leg, Neck, Pelvis, Ribs, Shoulder, Wrist Integumentary: No Symptoms Reported. negative: Itching, Rash, Bruising, Wound Allergic/Immunologic: No Symptoms Reported. negative: Hives, Itching Hematologic: No Symptoms Reported. negative: Lymphadenopathy, Easy Bruising, Easy Bleeding Endocrine: No Symptoms Reported. negative: Weight Gain, Weight Loss Psychiatric: No Symptoms Reported. negative: Anxiety, Depression, Hallucinations, Insomnia, Suicidal - Physical Exam Constitutional: Alert (Awake), Distress (MILD) Oriented to: Time, Person, Place Last recorded Vital Signs: Last Vital Signs Temp 98.1 F 07/19/16 13:25 Pulse 123 H 07/19/16 13:25 Resp 18 07/19/16 13:25 BP 122/78 07/19/16 13:25 Pulse Ox 93 07/19/16 13:25 Oxygen Pulse Oxygen Saturation 93 O2 Device Room Air Oxygen Flow Rate Fraction of Inspired Oxygen ( FIO2) - HEENT Head: Normal ( normocephalic) Eye Exam: Normal (PERRL, EOMI, Sclera white) Oropharynx: Normal (Pharynx:Moist without exudate,Gums-no swelling) Tympanic Membrane: Normal ENT EAC: Normal TMJ: Normal Nose: No Symptoms Reported (septum midline) Neck: Normal (FROM, trachea at midline) - Respiratory/Cardiovascular Respiratory: Normal - CTA (BBS clear to auscultation without adventitious sounds ) Cardiovascular: Normal (RRR without murmur, gallop or rub) - GI Auscultation: Normal (NABS) Palpation: Normal (Soft,No rebound or guarding, non distended) Tenderness: Non tender Redding's Sign: Negative - Bladder: Normal - Musculoskeletal Back: Other (LUMBAR TENDERNESS, LEFT KNEE PAIN- NOTES SHE IS UNABLE TO BEAR WEIGHT) Extremities: Normal (Normal tone, Pulses 2+ No cyanosis or edema, FROM) - Integumentary Skin: Normal, Warm, Dry Lymphatics: Normal (no adenopathy) - Neurologic Memory Impaired: Normal Motor Function: Normal (Normal tone, Pulses 2+ No cyanosis or edema, FROM) Cranial Nerve: Normal (CN II-X11 intact sensation, strength 5/5) Cerebellar: Normal Mood Description: Normal Perception: Normal - Results 07/19/16 13:35 07/19/16 13:35 WBC 10.9 xk/uL (3.8-10.8) H 07/19/16 13:35 RBC 5.84 xM/uL (4.20-5.40) H 07/19/16 13:35 Hgb 15.1 g/dL (12.0-16.0) 07/19/16 13:35 Hct 45.7 % (36-47) 07/19/16 13:35 MCV 78 fL (81-99) L 07/19/16 13:35 MCH 25.8 pg (27-32) L 07/19/16 13:35 MCHC 33.0 g/dl (33-36) 07/19/16 13:35 RDW 16.8 % (11.5-14.5) H 07/19/16 13:35 Plt Count 227 xk/uL (130-400) 07/19/16 13:35 MPV 8.6 fL (7.4-10.4) 07/19/16 13:35 Neut % (Auto) 83.9 % (45-76) H 07/19/16 13:35 Lymph % (Auto) 8.8 % (17-44) L 07/19/16 13:35 [place] % (Auto) 6.4 % (3-10) 07/19/16 13:35 Eos % (Auto) 0.4 % (0-5) 07/19/16 13:35 Baso % (Auto) 0.5 % (0-2) 07/19/16 13:35 Absolute Neuts (auto) 9.05 xk/uL (1.7-8.2) H 07/19/16 13:35 Absolute Lymphs (auto) 0.87 xk/uL (0.65-4.75) 07/19/16 13:35 POC Capillary Glucose 391 MG/DL (70-99) H 07/19/16 13:33 Lab Results 07/19/16 07/19/16 13:35 13:33 WBC 10.9 H RBC 5.84 H Hgb 15.1 Hct 45.7 MCV 78 L MCH 25.8 L MCHC 33.0 RDW 16.8 H Plt Count 227 MPV 8.6 Neut % (Auto) 83.9 H Lymph % (Auto) 8.8 L [place] % (Auto) 6.4 Eos % (Auto) 0.4 Baso % (Auto) 0.5 Absolute Neuts (auto) 9.05 H Absolute Lymphs (auto) 0.87 POC Capillary Glucose 391 H - EKG EKG #1 EKG Time: 13:40 -: Yes EKG interpreted by me Rate: bpm: [address] [place]: Normal Rhythm: Afib Block: None Hypertrophy: None ST: Normal - Departure Yes I personally saw and evaluated the patient. Disposition: Admit IP To This Hospital Condition: Fair Final Diagnosis: Poorly controlled diabetes mellitus, Renal insufficiency, Carotid artery calcification, Atrial fibrillation with RVR Syncope Qualifiers: Syncope type: unspecified Qualified Code(s): R55 - Syncope and collapse Education/Counseling Given To: Patient Education/Counseling Given Regarding: Diagnosis, Treatment, Prognosis Decision to Admit Time: 03:50 Decision to admit date: 07/20/16 Decision to admit: from ED
[2016-07-19 14:03] LABS: PARTIAL THROMB. TIME 26.9 SEC (22-35); PT-INR 1.1
[2016-07-19 14:07] LABS: BLOOD UREA NITROGEN 40 MG/DL (7-17); CALCULATED OSMOLALITY 289 MOs/Kg (270-290); CHLORIDE 89 mEq/L (98-107); SODIUM LEVEL 135 mEq/L (137-146); TOTAL PROTEIN 8.7 G/DL (6.3-8.2)
[2016-07-19 14:31] LABS: GLUCOSE 436 MG/DL (70-99)
--- NOTE | 2016-07-19 14:39 | DIRPT ---
CLINICAL DATA: Pain following fall EXAM: LEFT KNEE - COMPLETE 4+ VIEW COMPARISON: MR left knee October 19, 2006 FINDINGS: Frontal, lateral, and bilateral oblique views were obtained. There is no demonstrable fracture or dislocation. There is a joint effusion. There is mild generalized joint space narrowing. There is extensive chondrocalcinosis. There is atherosclerotic calcification in the popliteal artery. There is periosteal thickening in the proximal fibula with areas of relative lucency in the proximal fibula. IMPRESSION: No acute fracture or dislocation. There is a joint effusion. There is mild generalized joint space narrowing. There is extensive chondrocalcinosis. Chondrocalcinosis may be seen with osteoarthritis but also may be seen with calcium pyrophosphate deposition disease and present clinically as pseudogout. Areas of lucency in the proximal fibula with benign-appearing periosteal reaction in this area. Question residua of prior trauma in this area. Electronically Signed By: Jj Gonsales III, M.D. On: 07/19/2016 14:37
--- NOTE | 2016-07-19 14:39 | DIRPT ---
CLINICAL DATA: Fall, back pain, pelvic pain lesion EXAM: PELVIS - 1-2 VIEW COMPARISON: None. FINDINGS: Single frontal view of the pelvis submitted. Study is limited by patient's large body habitus. No acute fracture or subluxation. Minimal superior bilateral acetabular spurring. Mild degenerative changes pubic symphysis. IMPRESSION: No acute fracture or subluxation. Mild degenerative changes. Electronically Signed By: Chicho Velasquez M.D. On: 07/19/2016 14:36
--- NOTE | 2016-07-19 14:40 | DIRPT ---
CLINICAL DATA: Chest pain. Syncope. Back pain. EXAM: CHEST 1 VIEW COMPARISON: 07/06/2016 FINDINGS: Atherosclerotic aortic arch. Dextroconvex thoracic scoliosis. Mild enlargement of the cardiopericardial silhouette, without edema. No definite blunting of the costophrenic angles currently. IMPRESSION: 1. The blunting of the left lateral costophrenic angle shown on the prior radiograph has resolved. 2. Mild enlargement of the cardiopericardial silhouette, without edema. Electronically Signed By: Burton Santiago M.D. On: 07/19/2016 14:38
--- NOTE | 2016-07-19 14:57 | DIRPT ---
CLINICAL DATA: Pain following fall EXAM: CT HEAD WITHOUT CONTRAST CT CERVICAL SPINE WITHOUT CONTRAST TECHNIQUE: Multidetector CT imaging of the head and cervical spine was performed following the standard protocol without intravenous contrast. Multiplanar CT image reconstructions of the cervical spine were also generated. COMPARISON: CT cervical spine February 05, 2012; head CT July 06, 2016 FINDINGS: CT HEAD FINDINGS There is mild diffuse atrophy. There is no intracranial mass, hemorrhage, extra-axial fluid collection, or midline shift. There is evidence of a prior infarct involving the inferior left cerebellum, stable. There is mild small vessel disease in the centra semiovale bilaterally. There is no new dunn-white compartment lesion. No acute infarct evident. The bony calvarium appears intact. The mastoid air cells on the left are clear. There is opacification of several inferior mastoids on the right, stable. No intraorbital lesions are identified. CT CERVICAL SPINE FINDINGS There is no fracture or spondylolisthesis. Prevertebral soft tissues and predental space regions are normal. There is marked disc space narrowing at C6-7 and C7-T1. There is moderate disc space narrowing at C5-6. There is slightly milder disc space narrowing at C4-5. There is multilevel facet hypertrophy, most severe at C3-4 on the left and at C4-5 bilaterally. There is no disc extrusion or stenosis. There is exit foraminal narrowing due to bony hypertrophy at several levels, most notably at C5-6 bilaterally. There is calcification in both carotid arteries, more on the right than on the left. IMPRESSION: CT head: Stable atrophy. Prior infarct inferior left cerebellum. Mild periventricular small vessel disease. No acute infarct evident. No mass, hemorrhage, or extra-axial fluid collection. Inferior right mastoid air cell disease, stable. CT cervical spine: No fracture or spondylolisthesis. Multilevel arthropathy. Bilateral carotid artery calcification, more severe on the right than on the left. Electronically Signed By: Jj Gonsales III, M.D. On: 07/19/2016 14:54
[2016-07-19] MEDS ORDERED: NS 1,000 ML IV ONE (15:07)
[2016-07-19] MEDS ORDERED: DILTIAZEM 25 MG/5 ML VIAL IV ONE (15:11)
[2016-07-19 15:39] LABS: LEUKOCYTES/URINE TRACE (NEGATIVE); NITRITE/URINE NEG (NEGATIVE); RBC/URINE 0-2 (0-5); URINE OCCULT BLOOD NEG (NEG/TRACE)
[2016-07-19] MEDS ORDERED: PROMETHAZINE 25 MG/ML VIAL IV PRN (15:41)
[2016-07-19] MEDS ORDERED: ACETAMINOPHEN 325 MG SUPP PR PRN (15:41)
[2016-07-19] MEDS ORDERED: SENNA CONCENTRATE TAB PO PRN (15:41)
[2016-07-19] MEDS ORDERED: TUSSIONEX 5 ML ORAL SYRINGE PO PRN (15:41)
[2016-07-19] MEDS ORDERED: BENZONATATE 100 MG PERLES PO PRN (15:41)
[2016-07-19] MEDS ORDERED: BISACODYL 10 MG SUPP PR PRN (15:41)
[2016-07-19] MEDS ORDERED: ONDANSETRON HCL 4 MG/2 ML VIAL IV PRN (15:41)
[2016-07-19] MEDS ORDERED: Albuterol/Ipratropium Neb 3 ML NEB NEB PRN (15:44)
--- NOTE | 2016-07-19 15:47 | HISTPHYS ---
- Chief Complaint I was standing in the doorway to the kitchen today and passed out and my blood sugar is running too high - History of Present Illness Patient very pleasant 81-year-old white female who was brought in the emergency room today after she had collapsed in her door way to the kitchen. She now complains of low back pain. And mentions that she had fallen 2 weeks ago in fracture left proximal humerus requiring a sling. With the family tells me she has not eating well and patient states that her p.o. intake is down for more than the past 3 weeks. Is a history of atrial fib and cannot tell when her heart rate is too fast. She also has congestive heart failure hyper cholesterolemia aortic stenosis and a previous stroke. The main concern I have about her is the severe nature of her aortic stenosis with a valve area of 0.8 centimeters squared giving her a peak gradient of 57 torr and mean gradient of 37 torr documented on echocardiogram 06/15/2016. She also has atrial fibrillation as well as diastolic CHF with apparent relative dehydration which are contributing to her syncopal events. Her prognosis is quite poor and may have to keep her in bed and need to consider hospice and/or [place] [facility] placement. - Medical History Cardiac History: Reports: Atrial Fibrillation, Hypertension, Congestive Heart Failure, Cardiac Catheterization, Hypercholesterolemia, Valvular Heart Disease ( AORTIC STENOSIS with valve area of 0.8 cm sq & peak gradient 57 torr) Respiratory History: Reports: Pneumonia GI/ History: Reports: Urinary Tract Infection Musculoskeletal History: Reports: Arthritis Systemic History: Reports: Diabetes, Hypothyroidism. Denies: Cancer Neurological History: Reports: Cerebrovascular Accident (Left hemorrhagic [place] stroke 2012) Psychological History: Reports: Anxiety. Denies: Depression, Substance Use Disorder - Surgical History Reports: Cholecystectomy, Hysterectomy, Cardiac Catheterization, Tonsillectomy/ Adnoidectomy - Medictions/Allergies Allergies ephedrine [Ephedrine] Allergy (Unknown, Verified 07/19/16 13:25) Unknown/See Comments SPEEDS UP HEART ketorolac tromethamine [From Toradol] Allergy (Unknown, Verified 07/19/16 13:25) Unknown/See Comments TEETH CHATTER, CHILLS, LEG JUMPING oxycodone HCl [From Endocet] Allergy (Unknown, Verified 07/19/16 13:25) Unknown/See Comments pt states not having allergy to only acetaminophen OXYCODONE WITH ACETAMINOPHIN Allergy (Unknown, Uncoded 07/19/16 13:25) Unknown/See Comments STERAPRED Allergy (Unknown, Uncoded 07/19/16 13:25) Unknown/See Comments TACHYCARDIA Current Medication List: Reviewed Home Medications Glipizide [Glucotrol] 5 mg PO BIDAC 04/10/13 Biotin 1 mg PO DAILY 04/02/16 ClonazePAM [Klonopin] 0.5 mg PO BID PRN 04/02/16 Liraglutide [Victoza 18 mg/3 ml Pen] 1.2 mg SQ DAILY@0800 04/02/16 Sertraline HCl [Zoloft] 75 mg PO DAILY 04/02/16 Valsartan [Diovan] 160 mg PO BID 04/02/16 Apixaban [Eliquis] 5 mg PO BID 05/31/16 Atorvastatin Calcium [Lipitor] 20 mg PO QHS 05/31/16 Diclofenac Sodium [Voltaren 1% Topical Gel] 2 gm TOP QID 05/31/16 Diltiazem HCl [Diltiazem 24Hr ER] 240 mg PO DAILY 05/31/16 Furosemide [Lasix] 40 mg PO BID 05/31/16 Potassium Chloride 20 meq PO DAILY 05/31/16 Insulin Glargine,Hum.rec.anlog [Toujeo Solostar] 20 unit SQ HS #3 insuln.pen Metoprolol Tartrate 25 mg PO BID 07/06/16 Levothyroxine Sodium [Synthroid] 88 mcg PO DAILY #90 tab 07/08/16 Tramadol HCl [Rybix Odt] 50 mg PO Q6-8H PRN #60 tab.rapdis 07/08/16 - Family History Reports: Hypertension (father), Cancer (sister breast, mother ovarian), Cardiac Disorders (father) - Social History Travel Outside of [place] in the Last 3 Months?: No Lives: with Spouse Smoking Status: Never smoker Social History: Denies: Alcohol Use, Substance Use Disorder - Review of Systems Constitutional: Fatigue, Loss of Appetite, Weakness, Weight loss Eyes: No Symptoms Reported (No blurry vision, visual changes, eye pain, or eye redness.) Ears: No Symptoms Reported (No ear pain or discharge) Nose: No Symptoms Reported (No nasal discharge/congestion or bleeding) Mouth: No Symptoms Reported (No oropharyngeal lesions or erythema) Throat/Neck: No Symptoms Reported (No throat pain or swelling.No oropharyngeal lesions or erythema.) Respiratory: No Symptoms Reported (No cough, wheezing, or shortness of breath.) Cardiovascular: No Symptoms Reported (No chest pain or palpitations.) Gastrointestinal: Nausea, Other (Decreased p.o. intake indicating food taste too salty) Genitourinary: No Symptoms Reported (No dysuria or hematuria.) Neurological: No Symptoms Reported (No headache, dizziness, seizures, or focal weakness.) Musculoskeletal:: Other (Fracture left proximal humerus 07/06/2016 from recent syncopal event) Integumentary: Bruising (Left humerus) Allergic/Immunologic: No Symptoms Reported (no rashes or lesions) Hematologic: No Symptoms Reported (No chronic anemia, bleeding, or easy bruising.), Other (Lymphatics- no lymph node swelling or pain.) Endocrine: Diabetes, Hypothyroidism Psychiatric: No Symptoms Reported (Fully oriented, with normal and appropriate affect.) - Physical Exam Vital Signs: Initial Vitals Temperature 98.1 F 07/19/16 13:25 Pulse Rate 123 H 07/19/16 13:25 Respiratory Rate 18 07/19/16 13:25 Blood Pressure 122/78 07/19/16 13:25 Pulse Oxygen Saturation 93 07/19/16 13:25 Constitutional: Alert Oriented to: Time, Person, Place - HEENT Head: Normal (normocephalic, atraumatic.), Other (No cervical lymphadenopathy. No supraclavicular lymphadenopathy. Neck: No palpable mass, supple , trachea midline.) Eye: Normal (pupils equal, reactive to light, and round; EOMI, Sclera white) Oropharynx: Normal (Pharynx: Moist without exudate,Gums-no swelling, No oropharyngeal lesions or erythema, Mucous membranes are dry.) ENT EAC: Normal (No oropharyngeal lesions or erythema. Mucous membranes are dry. ) TMJ: Normal Nose: No Symptoms Reported (septum midline, Nares patent, without discharge or bleeding.) Respiratory: Normal - CTA (Clear to auscultation bilaterally. No wheezing, rales , rhonchi. Chest wall movements are symmetric. No use of accessory muscles to breathe.) Cardiovascular: Tachycardia, Irregular, Systolic murmur (2/6 systolic ejection aortic region) - GI Auscultation: Normal (normal active sounds) Palpation: Normal (Soft,non distended,nontender. No hepatosplenomegaly.) Tenderness: Non tender (No rebound or guarding) Redding's Sign: Negative - Musculoskeletal Back: Normal (Non-Tender) Extremities: Normal (Normal tone, DP pulses 2+ bilaterally, No cyanosis or edema bilaterally, FROM bilaterally.) Spine: non-tender, limited range of motion - Integumentary Skin: Normal (Clean, dry, and intact. No rashes. No lesions.) Lymphatics: Normal (No cervical lymphadenopathy. No supraclavicular lymphadenopathy.) - Neurologic Memory Impaired: Normal Motor Function: Normal (Motor 5/5 throughout.Normal tone, Pulses 2+ No cyanosis or edema, FROM) Cranial Nerve: Normal (CN II-XII intact sensation, strength 5/5) Cerebellar: Normal. negative: Ataxia, Past-Pointing, Tremor Mood Description: Normal (Fully oriented. Normal and appropriate affect.) Thought: Coherent Perception: Normal (Normal and appropriate affect.) - Focused CV Perfusion Exam Vital Signs: Last Vital Signs Temp 98.1 F 07/19/16 13:25 Pulse 121 H 07/19/16 15:25 Resp 18 07/19/16 13:25 BP 121/87 07/19/16 15:25 Pulse Ox 93 07/19/16 13:25 - Lab Results 07/19/16 13:35 07/19/16 13:35 Laboratory Results - last 24 hr 07/19/16 07/19/16 07/19/16 13:33 13:35 13:35 WBC 10.9 H RBC 5.84 H Hgb 15.1 Hct 45.7 MCV 78 L MCH 25.8 L MCHC 33.0 RDW 16.8 H Plt Count 227 MPV 8.6 Neut % (Auto) 83.9 H Lymph % (Auto) 8.8 L Cotton % (Auto) 6.4 Eos % (Auto) 0.4 Baso % (Auto) 0.5 Absolute Neuts (auto) 9.05 H Absolute Lymphs (auto) 0.87 PT INR APTT Sodium 135 L Potassium 4.0 Chloride 89 L Carbon Dioxide 28 Anion Gap 22 H BUN 40 H Creatinine 1.80 H Estimated GFR (MDRD) 27 L Glucose 436 H* POC Capillary Glucose 391 H Hemoglobin A1c Calculated Osmolality 289 Calcium 10.0 Total Bilirubin 1.8 H AST 45 H ALT 30 Alkaline Phosphatase 245 H Troponin I 0.04 Total Protein 8.7 H Albumin 4.5 TSH Urine Color Urine Clarity Urine pH Ur Specific [place] Urine Protein Urine Glucose (UA) Urine Ketones Urine Occult Blood Urine Nitrite Urine Bilirubin Urine Urobilinogen Ur Leukocyte Esterase Urine RBC Urine WBC Ur Epithelial Cells Urine Bacteria Hyaline Casts Urine Mucus 07/19/16 07/19/16 07/19/16 13:35 13:35 13:35 WBC RBC Hgb Hct MCV MCH MCHC RDW Plt Count MPV Neut % (Auto) Lymph % (Auto) Cotton % (Auto) Eos % (Auto) Baso % (Auto) Absolute Neuts (auto) Absolute Lymphs (auto) PT 10.8 INR 1.1 APTT 26.9 Sodium Potassium Chloride Carbon Dioxide Anion Gap BUN Creatinine Estimated GFR (MDRD) Glucose POC Capillary Glucose Hemoglobin A1c 11.5 H Calculated Osmolality Calcium Total Bilirubin AST ALT Alkaline Phosphatase Troponin I Total Protein Albumin TSH 3.99 Urine Color Urine Clarity Urine pH Ur Specific [place] Urine Protein Urine Glucose (UA) Urine Ketones Urine Occult Blood Urine Nitrite Urine Bilirubin Urine Urobilinogen Ur Leukocyte Esterase Urine RBC Urine WBC Ur Epithelial Cells Urine Bacteria Hyaline Casts Urine Mucus 07/19/16 07/19/16 07/19/16 15:24 16:50 17:40 WBC RBC Hgb Hct MCV MCH MCHC RDW Plt Count MPV Neut % (Auto) Lymph % (Auto) Cotton % (Auto) Eos % (Auto) Baso % (Auto) Absolute Neuts (auto) Absolute Lymphs (auto) PT INR APTT Sodium Potassium Chloride Carbon Dioxide Anion Gap BUN Creatinine Estimated GFR (MDRD) Glucose POC Capillary Glucose 331 H Hemoglobin A1c Calculated Osmolality Calcium Total Bilirubin AST ALT Alkaline Phosphatase Troponin I 0.03 Total Protein Albumin TSH Urine Color Yellow Urine Clarity Clear Urine pH 6.0 Ur Specific [place] 1.005 Urine Protein Neg Urine Glucose (UA) 2+ H Urine Ketones Neg Urine Occult Blood Neg Urine Nitrite Neg Urine Bilirubin Neg Urine Urobilinogen <2.0 Ur Leukocyte Esterase Trace H Urine RBC 0-2 Urine WBC 2-5 Ur Epithelial Cells 3+ Urine Bacteria 1+ H Hyaline Casts 10-20 H Urine Mucus Occ - Assessment (1) Atrial fibrillation with RVR I48.91 - UNSPECIFIED ATRIAL FIBRILLATION Chronic Present on Admission: Yes Heart rate elevated today and will continue to monitor this and treat accordingly with rate controlling medications. (2) Syncope R55 - SYNCOPE AND COLLAPSE Acute Present on Admission: Yes Qualifiers: Syncope type: unspecified Encounter type: E Qualified Code(s): R55 - Syncope and collapse Syncope due to dehydration with moderately severe aortic stenosis a horrible combination. IV fluids are to be administered and stop Lasix for now. Unfortunately were walking a tight rope with her history of diastolic CHF. (3) Severe aortic stenosis I35.0 - NONRHEUMATIC AORTIC (VALVE) STENOSIS Chronic Present on Admission: Yes Severe aortic stenosis with above-mentioned valve area is 0.8 centimeters squared and peak gradient of 57 torr. Will have to hold Lasix and Diovan. Concerned that this anti-hypertensive therapy may be exacerbating her syncope. (4) Poorly controlled diabetes mellitus E11.65 - TYPE 2 DIABETES MELLITUS WITH HYPERGLYCEMIA Chronic Present on Admission: Yes Glycohemoglobin 11.5 indicating poor control. Emergency room her glucose was over 400 requiring IV insulin. (5) Renal insufficiency N28.9 - DISORDER OF KIDNEY AND URETER, UNSPECIFIED Chronic Present on Admission: Yes Likely related to diabetic nephropathy with concomitant Lasix and angiotensin receptor blockade administration. She is also getting topical NSAID therapy. (6) Closed fracture of left proximal humerus S42.202A - UNSP FRACTURE OF UPPER END OF LEFT HUMERUS, INIT FOR CLOS FX Chronic Present on Admission: Yes Qualifiers: Encounter type: subsequent encounter Fracture morphology: F Fracture alignment: nondisplaced Fracture healing: with routine healing Qualified Code(s): S42.295D - Other nondisplaced fracture of upper end of left humerus, subsequent encounter for fracture with routine healing Fracture left proximal humerus documented 1 week ago. This was also associated with a syncopal event. (7) Aortic stenosis I35.0 - NONRHEUMATIC AORTIC (VALVE) STENOSIS Chronic Qualifiers: Cardiac valve disease etiology: nonrheumatic Qualified Code(s): I35.0 - Nonrheumatic aortic (valve) stenosis Noted on exam an echocardiogram. His moderate to severe in nature. Will follow up with Cardiology as an outpatient. (8) Orthostatic hypotension I95.1 - ORTHOSTATIC HYPOTENSION Chronic Present on Admission: Yes Likely associated with autonomic dysfunction associated with her diabetes in addition to dehydration from the diuretic and use of angiotensin receptor flora. May have to keep in wheelchair to get around. - Plan Due to the presence of and / or the risk of deterioration, my attendance to this patient required critical care time, including assessment/reassessment, documentation, ordering and interpreting ancillary studies, discussion with staff and consultants,patient and family, and excludes time spent on separately billable procedures. This individual is critically ill and in danger of dying. Case Care Discussed with: Patient, Consultants (Dr. Schmid), Nursing Staff, Resource Management (correction placement) Total Time: Critical care time spent 1 hour 27 minutes Critical Care: Yes Code: 291 (292)
[2016-07-19] MEDS ORDERED: NS 1,000 ML IV SCH (16:00)
[2016-07-19] MEDS ORDERED: REGULAR INSULIN 100 UNITS/ML - 3 ML VIAL IV ONE (17:53)
[2016-07-19] MEDS ORDERED: LIRAGLUTIDE 18 MG/3ML (0.6 MG/0.1 ML) PEN SQ SCH (19:00)
[2016-07-19] MEDS ORDERED: GLARGINE INSULIN (LANTUS) 100 UNITS/ML PEN SQ SCH (19:00)
[2016-07-19] MEDS ORDERED: Vaccine Screening Complete SCH (20:00)
[2016-07-19] MEDS ORDERED: GLUCOSE (ORAL GEL) 15 GM TUBE PO PRN (20:03)
[2016-07-19] MEDS ORDERED: DEXTROSE 25 GM/50 ML PFS IV PRN (20:03)
[2016-07-19] MEDS ORDERED: GLUCAGON 1 MG VIAL SQ PRN (20:03)
[2016-07-19] MEDS: REGULAR INSULIN 100 UNITS/ML - 3 ML VIAL SQ SCH (20:33)
[2016-07-19] MEDS: TRAMADOL HCL 50 MG TAB PO PRN (20:34)
[2016-07-19] MEDS: APIXABAN 5 MG TABLET PO SCH (20:35)
[2016-07-19] MEDS: GLARGINE INSULIN (LANTUS) 100 UNITS/ML PEN SQ SCH (20:35)
[2016-07-19] MEDS: METOPROLOL TARTRATE 25 MG TAB PO SCH (20:35)
[2016-07-19] MEDS: ATORVASTATIN 20 MG TAB PO SCH (20:36)
[2016-07-20 04:37] LABS: ALLEN'S TEST PASS; BEb 5.9 (+/- 2); TCO2 30.9 MMOL/L (23-27)
[2016-07-20 04:38] LABS: ABG Draw Site Right Radial
[2016-07-20 04:55] LABS: AUTOMATED BASOPHIL 0.4 % (0-2); AUTOMATED EOSINOPHIL 1.4 % (0-5); AUTOMATED MONOCYTE 7.8 % (3-10); AUTOMATED NEUTROPHIL 68.4 % (45-76); MPV 8.9 fL (7.4-10.4)
[2016-07-20 05:16] LABS: BLOOD UREA NITROGEN 36 MG/DL (7-17); CALCIUM 9.4 MG/DL (8.4-10.2); CALCULATED OSMOLALITY 272 MOs/Kg (270-290); CHLORIDE 94 mEq/L (98-107); GLUCOSE 173 MG/DL (70-99); SODIUM LEVEL 135 mEq/L (137-146)
[2016-07-20] MEDS: TRAMADOL HCL 50 MG TAB PO PRN (05:56)
[2016-07-20] MEDS: GLIPIZIDE 10 MG TAB PO SCH ×2 (06:00→17:25)
[2016-07-20] MEDS: REGULAR INSULIN 100 UNITS/ML - 3 ML VIAL SQ SCH ×4 (06:00→20:38)
[2016-07-20] MEDS: APIXABAN 5 MG TABLET PO SCH ×2 (08:49→20:37)
[2016-07-20] MEDS: METOPROLOL TARTRATE 25 MG TAB PO SCH ×2 (08:49→20:38)
[2016-07-20] MEDS: LIRAGLUTIDE 18 MG/3ML (0.6 MG/0.1 ML) PEN SQ SCH (08:49)
[2016-07-20] MEDS: LEVOTHYROXINE 88 MCG (0.088 MG) TAB PO SCH (08:50)
[2016-07-20] MEDS: SERTRALINE HCL 25 MG TAB PO SCH (08:50)
[2016-07-20] MEDS ORDERED: BIOTIN 1 MG PO SCH (09:00)
--- NOTE | 2016-07-20 09:49 | GENMEDPROG ---
Chief Complaint: L 3rd toe pain Notes Reviewed: Yes Events from last night noted and discussed with Clinical Staff Current Medication List: Reviewed DVT Prophylaxis: Yes - Physical Examination Vital Signs and I&O: Last Vital Signs Temp 97.7 F 07/20/16 07:45 Pulse 110 07/20/16 07:45 Resp 20 07/20/16 07:45 BP 165/94 07/20/16 07:45 Pulse Ox 100 07/20/16 07:45 Oxygen Pulse Oxygen Saturation 100 O2 Device Room Air Oxygen Flow Rate Fraction of Inspired Oxygen ( FIO2) Intake & Output 07/17/16 07/18/16 07/19/16 07/20/16 23:59 23:59 23:59 23:59 Intake Total 700 240 Output Total 250 900 Balance 450 -660 Patient's weight 77.428 kg General: Alert, Oriented x3, No acute distress, Well appearing, Well nourished HEENT: Normal (Normocephalic, atraumatic;EOMI.Sclera white, Nares patent, without discharge or bleeding. No oropharyngeal lesions or erythema. Mucous membranes are dry.) Neck: Non-tender, Full range of motion, Normal Trachea alignment, Normal inspection (No cervical lymphadenopathy. No supraclavicular lymphadenopathy.), No Masses palpable, Supple Lymphatics: Normal (no adenopathy) Respiratory: Normal - CTA (BBS clear to auscultation without adventitious sounds ) Cardiovascular: Regular rate and rhythm (No bradycardia or tachycardia), Normal S1, No Gallops,Rubs/Murmurs, Normal S2, Good Pedal Pulses (DP pulses 2+ bilaterally) GI: Normal bowel sounds (normal active sounds), Soft (non-distended), Non tender , No hepatospenomegaly, No masses Extremities/Musculoskeletal: Normal pulses (DP pulses 2+ bilaterally) Skin: Warm,Dry and Intact, No rashes, No significant lesion Neurological: Strength at 5/5 X4 ext (Motor 5/5 throughout.), Normal tone, Cranial nerves 3-12 NL ( 2-12 grossly intact.) Psych/Mental Status: Appropriate, Normal Affect Lab/DI/Studies Reviewed: 07/20/16 04:25 07/20/16 04:25 Laboratory Results - last 24 hr 07/19/16 07/19/16 07/19/16 13:33 13:35 13:35 WBC 10.9 H RBC 5.84 H Hgb 15.1 Hct 45.7 MCV 78 L MCH 25.8 L MCHC 33.0 RDW 16.8 H Plt Count 227 MPV 8.6 Neut % (Auto) 83.9 H Lymph % (Auto) 8.8 L Ray % (Auto) 6.4 Eos % (Auto) 0.4 Baso % (Auto) 0.5 Absolute Neuts (auto) 9.05 H Absolute Lymphs (auto) 0.87 PT INR APTT Puncture Site pH pCO2 pO2 HCO3 Total CO2 Base Excess FiO2 % Specimen Drawn By Sodium 135 L Potassium 4.0 Chloride 89 L Carbon Dioxide 28 Anion Gap 22 H BUN 40 H Creatinine 1.80 H Estimated GFR (MDRD) 27 L Glucose 436 H* POC Capillary Glucose 391 H Hemoglobin A1c Calculated Osmolality 289 Calcium 10.0 Total Bilirubin 1.8 H AST 45 H ALT 30 Alkaline Phosphatase 245 H Troponin I 0.04 Total Protein 8.7 H Albumin 4.5 TSH Urine Color Urine Clarity Urine pH Ur Specific [place] Urine Protein Urine Glucose (UA) Urine Ketones Urine Occult Blood Urine Nitrite Urine Bilirubin Urine Urobilinogen Ur Leukocyte Esterase Urine RBC Urine WBC Ur Epithelial Cells Urine Bacteria Hyaline Casts Urine Mucus 07/19/16 07/19/16 07/19/16 13:35 13:35 13:35 WBC RBC Hgb Hct MCV MCH MCHC RDW Plt Count MPV Neut % (Auto) Lymph % (Auto) Ray % (Auto) Eos % (Auto) Baso % (Auto) Absolute Neuts (auto) Absolute Lymphs (auto) PT 10.8 INR 1.1 APTT 26.9 Puncture Site pH pCO2 pO2 HCO3 Total CO2 Base Excess FiO2 % Specimen Drawn By Sodium Potassium Chloride Carbon Dioxide Anion Gap BUN Creatinine Estimated GFR (MDRD) Glucose POC Capillary Glucose Hemoglobin A1c 11.5 H Calculated Osmolality Calcium Total Bilirubin AST ALT Alkaline Phosphatase Troponin I Total Protein Albumin TSH 3.99 Urine Color Urine Clarity Urine pH Ur Specific [place] Urine Protein Urine Glucose (UA) Urine Ketones Urine Occult Blood Urine Nitrite Urine Bilirubin Urine Urobilinogen Ur Leukocyte Esterase Urine RBC Urine WBC Ur Epithelial Cells Urine Bacteria Hyaline Casts Urine Mucus 07/19/16 07/19/16 07/19/16 15:24 16:50 17:40 WBC RBC Hgb Hct MCV MCH MCHC RDW Plt Count MPV Neut % (Auto) Lymph % (Auto) Ray % (Auto) Eos % (Auto) Baso % (Auto) Absolute Neuts (auto) Absolute Lymphs (auto) PT INR APTT Puncture Site pH pCO2 pO2 HCO3 Total CO2 Base Excess FiO2 % Specimen Drawn By Sodium Potassium Chloride Carbon Dioxide Anion Gap BUN Creatinine Estimated GFR (MDRD) Glucose POC Capillary Glucose 331 H Hemoglobin A1c Calculated Osmolality Calcium Total Bilirubin AST ALT Alkaline Phosphatase Troponin I 0.03 Total Protein Albumin TSH Urine Color Yellow Urine Clarity Clear Urine pH 6.0 Ur Specific [place] 1.005 Urine Protein Neg Urine Glucose (UA) 2+ H Urine Ketones Neg Urine Occult Blood Neg Urine Nitrite Neg Urine Bilirubin Neg Urine Urobilinogen <2.0 Ur Leukocyte Esterase Trace H Urine RBC 0-2 Urine WBC 2-5 Ur Epithelial Cells 3+ Urine Bacteria 1+ H Hyaline Casts 10-20 H Urine Mucus Occ 07/19/16 07/19/16 07/20/16 19:51 19:55 04:25 WBC RBC Hgb Hct MCV MCH MCHC RDW Plt Count MPV Neut % (Auto) Lymph % (Auto) Ray % (Auto) Eos % (Auto) Baso % (Auto) Absolute Neuts (auto) Absolute Lymphs (auto) PT INR APTT Puncture Site pH pCO2 pO2 HCO3 Total CO2 Base Excess FiO2 % Specimen Drawn By Sodium 135 L Potassium 3.7 Chloride 94 L Carbon Dioxide 28 Anion Gap 17 H BUN 36 H Creatinine 1.50 H Estimated GFR (MDRD) 33 L Glucose 173 H POC Capillary Glucose 229 H Hemoglobin A1c Calculated Osmolality 272 Calcium 9.4 Total Bilirubin AST ALT Alkaline Phosphatase Troponin I 0.04 Total Protein Albumin TSH Urine Color Urine Clarity Urine pH Ur Specific [place] Urine Protein Urine Glucose (UA) Urine Ketones Urine Occult Blood Urine Nitrite Urine Bilirubin Urine Urobilinogen Ur Leukocyte Esterase Urine RBC Urine WBC Ur Epithelial Cells Urine Bacteria Hyaline Casts Urine Mucus 07/20/16 07/20/16 07/20/16 04:25 04:30 05:29 WBC 11.4 H RBC 5.11 Hgb 13.0 D Hct 39.7 MCV 78 L MCH 25.4 L MCHC 32.7 L RDW 16.4 H Plt Count 221 MPV 8.9 Neut % (Auto) 68.4 Lymph % (Auto) 22.0 Ray % (Auto) 7.8 Eos % (Auto) 1.4 Baso % (Auto) 0.4 Absolute Neuts (auto) 7.75 Absolute Lymphs (auto) 2.51 PT INR APTT Puncture Site Right radial pH 7.490 H pCO2 39.0 pO2 69.0 L HCO3 29.7 H Total CO2 30.9 H Base Excess 5.9 H FiO2 % 21% Specimen Drawn By [place] Sodium Potassium Chloride Carbon Dioxide Anion Gap BUN Creatinine Estimated GFR (MDRD) Glucose POC Capillary Glucose 182 H Hemoglobin A1c Calculated Osmolality Calcium Total Bilirubin AST ALT Alkaline Phosphatase Troponin I Total Protein Albumin TSH Urine Color Urine Clarity Urine pH Ur Specific [place] Urine Protein Urine Glucose (UA) Urine Ketones Urine Occult Blood Urine Nitrite Urine Bilirubin Urine Urobilinogen Ur Leukocyte Esterase Urine RBC Urine WBC Ur Epithelial Cells Urine Bacteria Hyaline Casts Urine Mucus - Assessment (1) Toe pain Acute M79.676 - PAIN IN UNSPECIFIED TOE(S) Qualifiers: Laterality: left Qualified Code(s): M79.675 - Pain in left toe(s) Comment/Plan: L 4rd toe pain check xray and uric acid. X-ray shows fracture of left 4th toe which will be taped to the left 3rd toe as a splint. Uric acid is also high at 9.6. I doubt she has the gout. May want to give her some drug for this like allopurinol or Uloric. (2) Atrial fibrillation with RVR Chronic I48.91 - UNSPECIFIED ATRIAL FIBRILLATION Comment/Plan: Heart rate elevated today and will continue to monitor this and treat accordingly with rate controlling medications. (3) Syncope Acute R55 - SYNCOPE AND COLLAPSE Qualifiers: Syncope type: unspecified Encounter type: E Qualified Code(s): R55 - Syncope and collapse Comment/Plan: Syncope due to dehydration with moderately severe aortic stenosis a horrible combination. IV fluids are to be administered and stop Lasix for now. Unfortunately were walking a tight rope with her history of diastolic CHF. Will have to let her blood pressure drift up. Syncope is certainly a bad prognosis for aortic stenosis. (4) Severe aortic stenosis Chronic I35.0 - NONRHEUMATIC AORTIC (VALVE) STENOSIS Comment/Plan: Severe aortic stenosis with above-mentioned valve area is 0.8 centimeters squared and peak gradient of 57 torr. Will have to hold Lasix and Diovan. Concerned that this anti-hypertensive therapy may be exacerbating her syncope. Discussed with Dr. Schmid and she certainly not candidate for open-heart surgery but possibly TAVR. (5) Poorly controlled diabetes mellitus Chronic E11.65 - TYPE 2 DIABETES MELLITUS WITH HYPERGLYCEMIA Comment/Plan: Glycohemoglobin 11.5 indicating poor control. Emergency room her glucose was over 400 requiring IV insulin. (6) Renal insufficiency Chronic N28.9 - DISORDER OF KIDNEY AND URETER, UNSPECIFIED Comment/Plan: Likely related to diabetic nephropathy with concomitant Lasix and angiotensin receptor blockade administration. She is also getting topical NSAID therapy. (7) Closed fracture of left proximal humerus Chronic S42.202A - UNSP FRACTURE OF UPPER END OF LEFT HUMERUS, INIT FOR CLOS FX Qualifiers: Encounter type: subsequent encounter Fracture morphology: F Fracture alignment: nondisplaced Fracture healing: with routine healing Qualified Code(s): S42.295D - Other nondisplaced fracture of upper end of left humerus, subsequent encounter for fracture with routine healing Comment/Plan: Fracture left proximal humerus documented 1 week ago. This was also associated with a syncopal event. (8) Aortic stenosis Chronic I35.0 - NONRHEUMATIC AORTIC (VALVE) STENOSIS Qualifiers: Cardiac valve disease etiology: nonrheumatic Qualified Code(s): I35.0 - Nonrheumatic aortic (valve) stenosis Comment/Plan: Noted on exam an echocardiogram. His moderate to severe in nature. Will follow up with Cardiology as an outpatient. (9) Orthostatic hypotension Chronic I95.1 - ORTHOSTATIC HYPOTENSION Comment/Plan: Likely associated with autonomic dysfunction associated with her diabetes in addition to dehydration from the diuretic and use of angiotensin receptor flora. May have to keep in wheelchair to get around. (10) Toe fracture, left Acute S92.912A - UNSP FRACTURE OF LEFT TOE(S), INIT FOR CLOS FX Qualifiers: Encounter type: initial encounter Toe: lesser toe Fracture type: closed Phalanx: middle Fracture alignment: nondisplaced Physeal involvement: P Salter-Lay[place] Fracture Type: S Fracture healing: F Qualified Code(s): S92.525A - Nondisplaced fracture of medial phalanx of left lesser toe(s), initial encounter for closed fracture Comment/Plan: Will tape this 4th to the adjacent 3rd toe. (11) Hyperuricemia Chronic E79.0 - HYPERURICEMIA W/O SIGNS OF INFLAM ARTHRIT AND TOPHACEOUS DIS Comment/Plan: Uric acid 9.6 and may consider allopurinol. Disposition Plan: [facility] placement Case Care Discussed with: Patient, Nursing Staff, Resource Management Education/Counseling Given To: Patient Education/Counseling Given Regarding: Diagnosis Total Time: 37 min Critical Care: No Code: 86699 (12+)
--- NOTE | 2016-07-20 10:49 | DIRPT ---
CLINICAL DATA: 81-year-old female with left third toe severe pain. Fall this week. Initial encounter. EXAM: LEFT FOOT - COMPLETE 3+ VIEW COMPARISON: None. FINDINGS: Oblique fracture of the left fourth proximal phalanx with 1/2 shaft with lateral displacement, and medial angulation of the distal fragment. Over riding of fragments up to 5 mm. Fourth MTP and IP joints are normal for age. Bone mineralization is within normal limits for age. Other phalanges appear intact. There are small chronic ossific fragments lateral to the fifth PIP joint. Degenerative spurring at the calcaneus which appears intact. No other acute osseous abnormality identified. IMPRESSION: Oblique mildly displaced and angulated extra-articular fracture of the left foot fourth proximal phalanx. Electronically Signed By: Elizabeth Leal M.D. On: 07/20/2016 10:46
--- NOTE | 2016-07-20 11:38 | PCM.CARDCO ---
Consultation Date: 07/20/16 Requesting Physician: Sai Infante Public Service Administrator: Sea Schmid Consult Reason: Syncope - History of Present Illness Patient is an 81 years old woman who was admitted to the hospital because of syncope. Apparently she was standing in the kitchen and then she fell down. Two weeks ago she had similar episode that she passed out she end up fracturing her left humerus. Denies having any prodromal syndromes that episode was very abrupt and sudden. She does have a past medical history significant for at least moderate aortic stenosis. Also hypertension. Her exercise capacity is limited. She does have chronic kidney dysfunction as well as a nonhealing wound on her on her right leg. Denies having any chest pain tightness squeezing pressure burning chest no significant shortness of breath. Chief Complaint: I was standing in the doorway to the kitchen today and passed out and my blood sugar is running too high - Past Medical and Surgical History Cardiac History: Reports: Atrial Fibrillation, Hypertension, Congestive Heart Failure, Cardiac Catheterization, Hypercholesterolemia, Valvular Heart Disease ( AORTIC STENOSIS) Respiratory History: Reports: Pneumonia GI/ History: Reports: Urinary Tract Infection Systemic History: Reports: Diabetes, Hypothyroidism. Denies: Cancer Musculoskeletal History: Reports: Arthritis Psychological History: Reports: Anxiety. 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) Past Surgical History: Reports: Cholecystectomy, Hysterectomy, Cardiac Catheterization, Tonsillectomy/Adnoidectomy Allergies ephedrine [Ephedrine] Allergy (Unknown, Verified 07/19/16 13:25) Unknown/See Comments SPEEDS UP HEART ketorolac tromethamine [From Toradol] Allergy (Unknown, Verified 07/19/16 13:25) Unknown/See Comments TEETH CHATTER, CHILLS, LEG JUMPING oxycodone HCl [From Endocet] Allergy (Unknown, Verified 07/19/16 13:25) Unknown/See Comments pt states not having allergy to only acetaminophen OXYCODONE WITH ACETAMINOPHIN Allergy (Unknown, Uncoded 07/19/16 13:25) Unknown/See Comments STERAPRED Allergy (Unknown, Uncoded 07/19/16 13:25) Unknown/See Comments TACHYCARDIA Home Medications Glipizide [Glucotrol] 5 mg PO BIDAC 04/10/13 Biotin 1 mg PO DAILY 04/02/16 ClonazePAM [Klonopin] 0.5 mg PO BID PRN 04/02/16 Liraglutide [Victoza 18 mg/3 ml Pen] 1.2 mg SQ DAILY@0800 04/02/16 Sertraline HCl [Zoloft] 75 mg PO DAILY 04/02/16 Valsartan [Diovan] 160 mg PO BID 04/02/16 Apixaban [Eliquis] 5 mg PO BID 05/31/16 Atorvastatin Calcium [Lipitor] 20 mg PO QHS 05/31/16 Diclofenac Sodium [Voltaren 1% Topical Gel] 2 gm TOP QID 05/31/16 Diltiazem HCl [Diltiazem 24Hr ER] 240 mg PO DAILY 05/31/16 Furosemide [Lasix] 40 mg PO BID 05/31/16 Potassium Chloride 20 meq PO DAILY 05/31/16 Insulin Glargine,Hum.rec.anlog [Toujeo Solostar] 20 unit SQ HS #3 insuln.pen Metoprolol Tartrate 25 mg PO BID 07/06/16 Levothyroxine Sodium [Synthroid] 88 mcg PO DAILY #90 tab 07/08/16 Tramadol HCl [Rybix Odt] 50 mg PO Q6-8H PRN #60 tab.rapdis 07/08/16 - Social History Travel Outside of [place] in the Last 3 Months?: No Lives: with Spouse Smoking Status: Never smoker Social History: Denies: Alcohol Use, Substance Use Disorder - Family History Reports: Hypertension (father), Cancer (sister breast, mother ovarian), Cardiac Disorders (father) - Review of Systems Constitutional: No Symptoms Reported. negative: Fever, Chills, Weakness, Fatigue, Loss of Appetite - Physical Exam Constitutional: Alert (Awake), Distress (MILD) Oriented to: Time, Person, Place Exam: Last Vital Signs Temp 97.7 F 07/20/16 10:44 Pulse 116 07/20/16 11:05 Resp 18 07/20/16 10:44 BP 133/73 07/20/16 10:44 Pulse Ox 94 07/20/16 10:44 Intake & Output 07/19/16 07/20/16 07/20/16 23:59 07:59 15:59 Intake Total 700 240 Output Total 250 900 Balance 450 -660 Patient's weight 77.428 kg - HEENT Head: Normal ( normocephalic) Eye: Normal (PERRL, EOMI, Sclera white) Oropharynx: Normal (Pharynx:Moist without exudate,Gums-no swelling) Tympanic Membrane: Normal ENT EAC: Normal TMJ: Normal Nose: No Symptoms Reported (septum midline) - Respiratory/Cardiovascular Respiratory: Normal - CTA (BBS clear to auscultation without adventitious sounds ) - GI Auscultation: Normal (NABS) Palpation: Normal (Soft,No rebound or guarding, non distended) Tenderness: Non tender - Musculoskeletal Back: Other (LUMBAR TENDERNESS, LEFT KNEE PAIN- NOTES SHE IS UNABLE TO BEAR WEIGHT) Extremities: Normal (Normal tone, Pulses 2+ No cyanosis or edema, FROM) - Integumentary Lymphatics: Normal (no adenopathy) - Neurologic Memory Impaired: Normal Cerebellar: Normal Mood Description: Normal Perception: Normal - Other Exam Other Exam Findings: General Appearance: Well developed. Well nourished. In no acute distress. Lungs: Chest was not overinflated. Clear to auscultation. Cardiovascular: Jugular Venous Distention: JVD not increased. Heart Rate And Rhythm: Irregularly irregular. Heart Sounds: Tones are distant, there is systolic ejection murmur best heard the right upper portion of the sternum with radiation towards the neck. Grade is 2/6. Murmurs: No murmurs were heard. Carotid Arteries: Carotid pulses were normal. No bruit in the carotid artery. Edema: Not present. Lower extremities pulses normal (including femoral popliteal and dorsalis pedis) . Musculoskeletal System: General/bilateral: No cyanosis of the fingers. Neurological: Oriented to time, place, and person. Nails: No clubbing of the fingernails. - Lab Results Laboratory Tests 07/19/16 07/19/16 07/19/16 13:33 13:35 13:35 WBC 10.9 H RBC 5.84 H Hgb 15.1 Hct 45.7 MCV 78 L MCH 25.8 L MCHC 33.0 RDW 16.8 H Plt Count 227 MPV 8.6 Neut % (Auto) 83.9 H Lymph % (Auto) 8.8 L [place] % (Auto) 6.4 Eos % (Auto) 0.4 Baso % (Auto) 0.5 Absolute Neuts (auto) 9.05 H Absolute Lymphs (auto) 0.87 PT INR APTT Puncture Site pH pCO2 pO2 HCO3 Total CO2 Base Excess FiO2 % Specimen Drawn By Sodium 135 L Potassium 4.0 Chloride 89 L Carbon Dioxide 28 Anion Gap 22 H BUN 40 H Creatinine 1.80 H Estimated GFR (MDRD) 27 L Glucose 436 H* POC Capillary Glucose 391 H Hemoglobin A1c Calculated Osmolality 289 Uric Acid Calcium 10.0 Total Bilirubin 1.8 H AST 45 H ALT 30 Alkaline Phosphatase 245 H Troponin I 0.04 Total Protein 8.7 H Albumin 4.5 TSH Urine Color Urine Clarity Urine pH Ur Specific Winnie Urine Protein Urine Glucose (UA) Urine Ketones Urine Occult Blood Urine Nitrite Urine Bilirubin Urine Urobilinogen Ur Leukocyte Esterase Urine RBC Urine WBC Ur Epithelial Cells Urine Bacteria Hyaline Casts Urine Mucus 07/19/16 07/19/16 07/19/16 13:35 13:35 13:35 WBC RBC Hgb Hct MCV MCH MCHC RDW Plt Count MPV Neut % (Auto) Lymph % (Auto) [place] % (Auto) Eos % (Auto) Baso % (Auto) Absolute Neuts (auto) Absolute Lymphs (auto) PT 10.8 INR 1.1 APTT 26.9 Puncture Site pH pCO2 pO2 HCO3 Total CO2 Base Excess FiO2 % Specimen Drawn By Sodium Potassium Chloride Carbon Dioxide Anion Gap BUN Creatinine Estimated GFR (MDRD) Glucose POC Capillary Glucose Hemoglobin A1c 11.5 H Calculated Osmolality Uric Acid Calcium Total Bilirubin AST ALT Alkaline Phosphatase Troponin I Total Protein Albumin TSH 3.99 Urine Color Urine Clarity Urine pH Ur Specific Winnie Urine Protein Urine Glucose (UA) Urine Ketones Urine Occult Blood Urine Nitrite Urine Bilirubin Urine Urobilinogen Ur Leukocyte Esterase Urine RBC Urine WBC Ur Epithelial Cells Urine Bacteria Hyaline Casts Urine Mucus 07/19/16 07/19/16 07/19/16 15:24 16:50 17:40 WBC RBC Hgb Hct MCV MCH MCHC RDW Plt Count MPV Neut % (Auto) Lymph % (Auto) [place] % (Auto) Eos % (Auto) Baso % (Auto) Absolute Neuts (auto) Absolute Lymphs (auto) PT INR APTT Puncture Site pH pCO2 pO2 HCO3 Total CO2 Base Excess FiO2 % Specimen Drawn By Sodium Potassium Chloride Carbon Dioxide Anion Gap BUN Creatinine Estimated GFR (MDRD) Glucose POC Capillary Glucose 331 H Hemoglobin A1c Calculated Osmolality Uric Acid Calcium Total Bilirubin AST ALT Alkaline Phosphatase Troponin I 0.03 Total Protein Albumin TSH Urine Color Yellow Urine Clarity Clear Urine pH 6.0 Ur Specific Winnie 1.005 Urine Protein Neg Urine Glucose (UA) 2+ H Urine Ketones Neg Urine Occult Blood Neg Urine Nitrite Neg Urine Bilirubin Neg Urine Urobilinogen <2.0 Ur Leukocyte Esterase Trace H Urine RBC 0-2 Urine WBC 2-5 Ur Epithelial Cells 3+ Urine Bacteria 1+ H Hyaline Casts 10-20 H Urine Mucus Occ 07/19/16 07/19/16 07/20/16 19:51 19:55 04:25 WBC RBC Hgb Hct MCV MCH MCHC RDW Plt Count MPV Neut % (Auto) Lymph % (Auto) [place] % (Auto) Eos % (Auto) Baso % (Auto) Absolute Neuts (auto) Absolute Lymphs (auto) PT INR APTT Puncture Site pH pCO2 pO2 HCO3 Total CO2 Base Excess FiO2 % Specimen Drawn By Sodium 135 L Potassium 3.7 Chloride 94 L Carbon Dioxide 28 Anion Gap 17 H BUN 36 H Creatinine 1.50 H Estimated GFR (MDRD) 33 L Glucose 173 H POC Capillary Glucose 229 H Hemoglobin A1c Calculated Osmolality 272 Uric Acid Calcium 9.4 Total Bilirubin AST ALT Alkaline Phosphatase Troponin I 0.04 Total Protein Albumin TSH Urine Color Urine Clarity Urine pH Ur Specific Winnie Urine Protein Urine Glucose (UA) Urine Ketones Urine Occult Blood Urine Nitrite Urine Bilirubin Urine Urobilinogen Ur Leukocyte Esterase Urine RBC Urine WBC Ur Epithelial Cells Urine Bacteria Hyaline Casts Urine Mucus 07/20/16 07/20/16 07/20/16 04:25 04:25 04:30 WBC 11.4 H RBC 5.11 Hgb 13.0 D Hct 39.7 MCV 78 L MCH 25.4 L MCHC 32.7 L RDW 16.4 H Plt Count 221 MPV 8.9 Neut % (Auto) 68.4 Lymph % (Auto) 22.0 Throckmorton % (Auto) 7.8 Eos % (Auto) 1.4 Baso % (Auto) 0.4 Absolute Neuts (auto) 7.75 Absolute Lymphs (auto) 2.51 PT INR APTT Puncture Site Right radial pH 7.490 H pCO2 39.0 pO2 69.0 L HCO3 29.7 H Total CO2 30.9 H Base Excess 5.9 H FiO2 % 21% Specimen Drawn By [place] Sodium Potassium Chloride Carbon Dioxide Anion Gap BUN Creatinine Estimated GFR (MDRD) Glucose POC Capillary Glucose Hemoglobin A1c Calculated Osmolality Uric Acid 9.6 H Calcium Total Bilirubin AST ALT Alkaline Phosphatase Troponin I Total Protein Albumin TSH Urine Color Urine Clarity Urine pH Ur Specific Winnie Urine Protein Urine Glucose (UA) Urine Ketones Urine Occult Blood Urine Nitrite Urine Bilirubin Urine Urobilinogen Ur Leukocyte Esterase Urine RBC Urine WBC Ur Epithelial Cells Urine Bacteria Hyaline Casts Urine Mucus 07/20/16 07/20/16 05:29 10:48 WBC RBC Hgb Hct MCV MCH MCHC RDW Plt Count MPV Neut % (Auto) Lymph % (Auto) [place]mort[place] % (Auto) Eos % (Auto) Baso % (Auto) Absolute Neuts (auto) Absolute Lymphs (auto) PT INR APTT Puncture Site pH pCO2 pO2 HCO3 Total CO2 Base Excess FiO2 % Specimen Drawn By Sodium Potassium Chloride Carbon Dioxide Anion Gap BUN Creatinine Estimated GFR (MDRD) Glucose POC Capillary Glucose 182 H 198 H Hemoglobin A1c Calculated Osmolality Uric Acid Calcium Total Bilirubin AST ALT Alkaline Phosphatase Troponin I Total Protein Albumin TSH Urine Color Urine Clarity Urine pH Ur Specific Winnie Urine Protein Urine Glucose (UA) Urine Ketones Urine Occult Blood Urine Nitrite Urine Bilirubin Urine Urobilinogen Ur Leukocyte Esterase Urine RBC Urine WBC Ur Epithelial Cells Urine Bacteria Hyaline Casts Urine Mucus - Assessment/Plan (1) Syncope R55 - SYNCOPE AND COLLAPSE Acute Present on Admission: Yes unspecified E R55 - Syncope and collapse Comment: Obviously her symptoms are very worrisome. She may have syncope related to aortic stenosis. I think the maneuvers that Internal Medicine team at doing is great the antoine is to reduce her medications even at because of having slightly high blood pressure. (2) Atrial fibrillation with RVR I48.91 - UNSPECIFIED ATRIAL FIBRILLATION Chronic Comment: Rate appears to be controlled. She is anticoagulated but that is becoming problematic with her episode of syncope. I spoke ready to her about that she is willing to continue but they have to admit I do have some reservations for continuation of her Eliquis. (3) Poorly controlled diabetes mellitus E11.65 - TYPE 2 DIABETES MELLITUS WITH HYPERGLYCEMIA Chronic Comment: Managed by Internal Medicine team. (4) Renal insufficiency N28.9 - DISORDER OF KIDNEY AND URETER, UNSPECIFIED Chronic Comment: Will avoid nephrotoxic medication, will follow-up creatinine. (5) Aortic stenosis I35.0 - NONRHEUMATIC AORTIC (VALVE) STENOSIS Chronic nonrheumatic I35.0 - Nonrheumatic aortic (valve) stenosis Comment: Appears to be at least moderate to severe. Calculated aortic valve area is less than 1 centimeter sq. Because of her comorbidity I do not think she would be candidate for open chest surgery. TAVR can be considered but with her comorbidity I doubt that this is a viable option. I talked to her about this I will try to talk to her family about this as well. In the meantime will continue present management and see how she does.
[2016-07-20] MEDS: ACETAMINOPHEN 325 MG/TAB TABLET PO PRN (18:51)
[2016-07-20] MEDS: ATORVASTATIN 20 MG TAB PO SCH (20:38)
[2016-07-20] MEDS: GLARGINE INSULIN (LANTUS) 100 UNITS/ML PEN SQ SCH (20:38)
[2016-07-20] MEDS: ALLOPURINOL 100 MG TAB PO SCH (21:27)
[2016-07-21] MEDS: GLIPIZIDE 10 MG TAB PO SCH ×2 (06:17→18:13)
[2016-07-21] MEDS: REGULAR INSULIN 100 UNITS/ML - 3 ML VIAL SQ SCH ×4 (06:17→21:27)
[2016-07-21] MEDS: LIRAGLUTIDE 18 MG/3ML (0.6 MG/0.1 ML) PEN SQ SCH (08:46)
[2016-07-21] MEDS: APIXABAN 5 MG TABLET PO SCH ×2 (08:47→21:26)
[2016-07-21] MEDS: LEVOTHYROXINE 88 MCG (0.088 MG) TAB PO SCH (08:48)
[2016-07-21] MEDS: METOPROLOL TARTRATE 25 MG TAB PO SCH ×2 (08:48→21:26)
[2016-07-21] MEDS: SERTRALINE HCL 25 MG TAB PO SCH (08:49)
[2016-07-21] MEDS: ALLOPURINOL 100 MG TAB PO SCH (08:50)
--- NOTE | 2016-07-21 10:37 | PCM.CARD ---
- Subjective Reason for visit: Follow-up aortic stenosis Doing fine denies having any complaints. Vital Signs: Last Vital Signs Temp 98.0 F 07/21/16 07:50 Pulse 114 07/21/16 10:00 Resp 18 07/21/16 07:50 BP 125/88 07/21/16 07:50 Pulse Ox 94 07/21/16 07:50 PE: General Appearance: Well developed. Well nourished. In no acute distress. Lungs: Chest was not overinflated. Clear to auscultation. Cardiovascular: Jugular Venous Distention: JVD not increased. Heart Rate And Rhythm: Irregular irregular. Heart Sounds: Normal. Murmurs: Systolic murmur 3/6 best heard the right upper portion of the sternum. Carotid Arteries: Carotid pulses were normal. No bruit in the carotid artery. Edema: Not present. Lower extremities pulses normal (including femoral popliteal and dorsalis pedis) . Musculoskeletal System: General/bilateral: No cyanosis of the fingers. Neurological: Oriented to time, place, and person. Nails: No clubbing of the fingernails. - Assessment/Plan (1) Syncope Acute R55 - SYNCOPE AND COLLAPSE Present on Admission: Yes unspecified E R55 - Syncope and collapse Comment/Plan: Concerning of significant aortic stenosis. Medications were modified she seems to be doing better from that point of view. Will check her orthostatic changes. (2) Atrial fibrillation with RVR Chronic I48.91 - UNSPECIFIED ATRIAL FIBRILLATION Present on Admission: Yes Comment/Plan: Rate appears to be controlled. I will reduce dose of Eliquis however overall anticoagulation became problematic with her history of passing out. Will try to talk to her and her family about decision which way she wants to proceed. (3) Poorly controlled diabetes mellitus Chronic E11.65 - TYPE 2 DIABETES MELLITUS WITH HYPERGLYCEMIA Present on Admission: Yes Comment/Plan: Follow up by Internal Medicine team. (4) Renal insufficiency Chronic N28.9 - DISORDER OF KIDNEY AND URETER, UNSPECIFIED Present on Admission: Yes Comment/Plan: Noted, will avoid nephrotoxic medications. (5) Aortic stenosis Chronic I35.0 - NONRHEUMATIC AORTIC (VALVE) STENOSIS nonrheumatic I35.0 - Nonrheumatic aortic (valve) stenosis Comment/Plan: Significant issues. Because of her comorbidity I do not think she would be candidate for sternotomy and aortic valve replacement. TAVR potentially can be considered, but again with her comorbidity namely advanced diabetes, kidney dysfunction, and healing wound on her like I do not think this is an option at least not in this situation. I talked to her about this and she is in agreement with that. Therefore these for now will continue conservative approach. She need to be evaluated but PT team to decide about anticoagulation because of her risk of falls. We may even consider palliative care.
--- NOTE | 2016-07-21 16:59 | GENMEDPROG ---
Subjective Note: Patient with no new complaints. Notes Reviewed: Yes Events from last night noted and discussed with Clinical Staff Current Medication List: Reviewed Currently: Reports: SOB DVT Prophylaxis: Yes - Physical Examination Vital Signs and I&O: Last Vital Signs Temp 98.0 F 07/21/16 15:56 Pulse 101 07/21/16 15:56 Resp 18 07/21/16 15:56 BP 152/78 07/21/16 15:56 Pulse Ox 91 07/21/16 15:56 Oxygen Pulse Oxygen Saturation 91 O2 Device Room Air Oxygen Flow Rate Fraction of Inspired Oxygen ( FIO2) Intake & Output 07/18/16 07/19/16 07/20/16 07/21/16 23:59 23:59 23:59 23:59 Intake Total 700 600 360 Output Total 250 1600 900 Balance 450 -1000 -540 Patient's weight 77.428 kg 78.063 kg General: Alert, Oriented x3, No acute distress, Well appearing, Well nourished HEENT: Normal (Normocephalic, atraumatic;EOMI.Sclera white, Nares patent, without discharge or bleeding. No oropharyngeal lesions or erythema. Mucous membranes are dry.) Neck: Non-tender, Full range of motion, Normal Trachea alignment, Normal inspection (No cervical lymphadenopathy. No supraclavicular lymphadenopathy.), No Masses palpable, Supple Lymphatics: Normal (no adenopathy) Respiratory: Normal - CTA (BBS clear to auscultation without adventitious sounds ) Cardiovascular: Regular rate and rhythm (No bradycardia or tachycardia), Normal S1, No Gallops,Rubs/Murmurs, Normal S2, Good Pedal Pulses (DP pulses 2+ bilaterally) GI: Normal bowel sounds (normal active sounds), Soft (non-distended), Non tender , No hepatospenomegaly, No masses Extremities/Musculoskeletal: Normal pulses (DP pulses 2+ bilaterally) Skin: Warm,Dry and Intact, No rashes, No significant lesion Neurological: Strength at 5/5 X4 ext (Motor 5/5 throughout.), Normal tone, Cranial nerves 3-12 NL ( 2-12 grossly intact.) Psych/Mental Status: Appropriate, Normal Affect Lab/DI/Studies Reviewed: Abnormal Lab Results 07/20/16 07/21/16 07/21/16 19:46 05:06 11:02 POC Capillary Glucose 173 H 120 H 191 H 07/21/16 15:54 POC Capillary Glucose 197 H - Assessment (1) Syncope Acute R55 - SYNCOPE AND COLLAPSE Qualifiers: Syncope type: unspecified Encounter type: E Qualified Code(s): R55 - Syncope and collapse Comment/Plan: Syncope due to dehydration with moderately severe aortic stenosis a horrible combination. IV fluids are to be administered and stop Lasix for now. Unfortunately were walking a tight rope with her history of diastolic CHF. Will have to let her blood pressure drift up. Syncope is certainly a bad prognosis for aortic stenosis. Await further plans from Cardiology. (2) Severe aortic stenosis Chronic I35.0 - NONRHEUMATIC AORTIC (VALVE) STENOSIS Comment/Plan: Severe aortic stenosis with above-mentioned valve area is 0.8 centimeters squared and peak gradient of 57 torr. Will have to hold Lasix and Diovan. Concerned that this anti-hypertensive therapy may be exacerbating her syncope. Discussed with Dr. Gallardo and she certainly not candidate for open-heart surgery but possibly TAVR. Await further evaluation by Dr. GALLARDO. (3) Atrial fibrillation with RVR Chronic I48.91 - UNSPECIFIED ATRIAL FIBRILLATION Comment/Plan: Heart rate elevated today and will continue to monitor this and treat accordingly with rate controlling medications. Continue Eliquis (4) Poorly controlled diabetes mellitus Chronic E11.65 - TYPE 2 DIABETES MELLITUS WITH HYPERGLYCEMIA Comment/Plan: Glycohemoglobin 11.5 indicating poor control. Glucoses ranging between 120 and 198 in the past 24 hours. (5) Renal insufficiency Chronic N28.9 - DISORDER OF KIDNEY AND URETER, UNSPECIFIED Comment/Plan: Likely related to diabetic nephropathy with concomitant Lasix and angiotensin receptor blockade administration. She is also getting topical NSAID therapy. Creatinine 1.5 yesterday will recheck in a.m.. (6) Closed fracture of left proximal humerus Chronic S42.202A - UNSP FRACTURE OF UPPER END OF LEFT HUMERUS, INIT FOR CLOS FX Qualifiers: Encounter type: subsequent encounter Fracture morphology: F Fracture alignment: nondisplaced Fracture healing: with routine healing Qualified Code(s): S42.295D - Other nondisplaced fracture of upper end of left humerus, subsequent encounter for fracture with routine healing Comment/Plan: Fracture left proximal humerus documented 1 week ago. This was also associated with a syncopal event. (7) Toe pain Acute M79.676 - PAIN IN UNSPECIFIED TOE(S) Qualifiers: Laterality: left Qualified Code(s): M79.675 - Pain in left toe(s) Comment/Plan: L 4rd toe pain check xray and uric acid. X-ray shows fracture of left 4th toe which will be taped to the left 3rd toe as a splint. Uric acid is also high at 9.6. I doubt patient has gout. Will monitor closely - Plan Management per Cardiology. Patient may need intervention if not then possibly palliative care will discuss with Dr. GALLARDO. Disposition Plan: prison placement Case Care Discussed with: Patient, Family Education/Counseling Given To: Patient, Significant Other Education/Counseling Given Regarding: Diagnosis, Treatment, Prognosis, Follow Up , Disposition Plan Total Time: 45 minutes Critical Care: No Couseling Time (>50% in counseling/coordination): No
[2016-07-21] MEDS: ATORVASTATIN 20 MG TAB PO SCH (21:26)
[2016-07-21] MEDS: GLARGINE INSULIN (LANTUS) 100 UNITS/ML PEN SQ SCH (21:26)
[2016-07-22] MEDS: TRAMADOL HCL 50 MG TAB PO PRN (00:36)
[2016-07-22 04:47] VITALS: BMI 29.7
[2016-07-22 05:59] LABS: AUTOMATED BASOPHIL 0.7 % (0-2); AUTOMATED EOSINOPHIL 0.9 % (0-5); AUTOMATED LYMPH 22.7 % (17-44); AUTOMATED MONOCYTE 9.5 % (3-10); AUTOMATED NEUTROPHIL 66.2 % (45-76); MPV 9.2 fL (7.4-10.4)
[2016-07-22 06:39] LABS: BLOOD UREA NITROGEN 32 MG/DL (7-17); CALCIUM 9.7 MG/DL (8.4-10.2); CALCULATED OSMOLALITY 272 MOs/Kg (270-290); CHLORIDE 95 mEq/L (98-107); GLUCOSE 115 MG/DL (70-99); SODIUM LEVEL 137 mEq/L (137-146)
[2016-07-22] MEDS: REGULAR INSULIN 100 UNITS/ML - 3 ML VIAL SQ SCH ×2 (07:21→12:05)
[2016-07-22] MEDS: GLIPIZIDE 10 MG TAB PO SCH (07:29)
[2016-07-22] MEDS: APIXABAN 5 MG TABLET PO SCH (09:12)
[2016-07-22] MEDS: SERTRALINE HCL 25 MG TAB PO SCH (09:13)
[2016-07-22] MEDS: METOPROLOL TARTRATE 25 MG TAB PO SCH (09:13)
[2016-07-22] MEDS: LEVOTHYROXINE 88 MCG (0.088 MG) TAB PO SCH (09:13)
[2016-07-22] MEDS: LIRAGLUTIDE 18 MG/3ML (0.6 MG/0.1 ML) PEN SQ SCH (09:14)
[2016-07-22] MEDS: ALLOPURINOL 100 MG TAB PO SCH (09:14)
[2016-07-22] MEDS: Magnesium Sulfate 2 gm/D5W 2 GM/50 ML RTU IV SCH ×2 (10:21→11:59)
--- NOTE | 2016-07-22 11:02 | PCM.DCS92 ---
- Final/Secondary Discharge Diagnosis (1) Syncope Resolved R55 - SYNCOPE AND COLLAPSE Present on Admission: Yes unspecified E R55 - Syncope and collapse Comment: Syncope due to dehydration with moderately severe aortic stenosis a horrible combination. IV fluids are to be administered and stop Lasix for now. Unfortunately were walking a tight rope with her history of diastolic CHF. Will have to let her blood pressure drift up. Syncope is certainly a bad prognosis for aortic stenosis. Await further plans from Cardiology. (2) Severe aortic stenosis Chronic I35.0 - NONRHEUMATIC AORTIC (VALVE) STENOSIS Present on Admission: Yes Comment: Severe aortic stenosis with above-mentioned valve area is 0.8 centimeters squared and peak gradient of 57 torr. Will have to hold Lasix and Diovan. Concerned that this anti-hypertensive therapy may be exacerbating her syncope. Discussed with Dr. Gallardo and she certainly not candidate for open- heart surgery or TAVR. (3) Atrial fibrillation with RVR Chronic I48.91 - UNSPECIFIED ATRIAL FIBRILLATION Present on Admission: Yes Comment: Heart rate elevated today and will continue to monitor this and treat accordingly with rate controlling medications. Continue Eliquis (4) Poorly controlled diabetes mellitus Chronic E11.65 - TYPE 2 DIABETES MELLITUS WITH HYPERGLYCEMIA Present on Admission: Yes Comment: Glycohemoglobin 11.5 indicating poor control. Glucoses ranging between 120 and 198 in the past 24 hours. (5) Renal insufficiency Chronic N28.9 - DISORDER OF KIDNEY AND URETER, UNSPECIFIED Present on Admission: Yes Comment: Likely related to diabetic nephropathy with concomitant Lasix and angiotensin receptor blockade administration. She is also getting topical NSAID therapy. Creatinine 1.5 yesterday will recheck in a.m.. (6) Closed fracture of left proximal humerus Chronic S42.202A - UNSP FRACTURE OF UPPER END OF LEFT HUMERUS, INIT FOR CLOS FX Present on Admission: Yes subsequent encounter F nondisplaced with routine healing S42.295D - Other nondisplaced fracture of upper end of left humerus, subsequent encounter for fracture with routine healing Comment: Fracture left proximal humerus documented 1 week ago. This was also associated with a syncopal event. (7) Toe pain Resolved M79.676 - PAIN IN UNSPECIFIED TOE(S) left M79.675 - Pain in left toe(s) Comment: L 4rd toe pain check xray and uric acid. X-ray shows fracture of left 4th toe which will be taped to the left 3rd toe as a splint. Uric acid is also high at 9.6. I doubt patient has gout. Will monitor closely Discharge Disposition: Detention Facility Discharge Condition: Improved Cognitive Discharge Status: Unimpaired Fuctional Discharge Status: Cane Assistance, Walker Assistance, Fall Risk, Inability to drive due to severe medical illness, Ambulatory Dysfunction Physician Follow up/Referrals: Jevon Evans MD [Primary Care Provider] - One Week Sea Gallardo MD [Staff Physician] - One Week Home Medications / New Prescriptions: New Allopurinol [Zyloprim] 100 mg PO DAILY #30 tablet Magnesium Oxide [Mag-Ox] 400 mg PO TIDWM #100 tablet Metoprolol Tartrate [Lopressor] 25 mg PO BID #60 tablet Continue Glipizide [Glucotrol] 5 mg PO BIDAC ClonazePAM [Klonopin] 0.5 mg PO BID PRN PRN Reason: Anxiety Liraglutide [Victoza 18 mg/3 ml Pen] 1.2 mg SQ DAILY@0800 Sertraline HCl [Zoloft] 75 mg PO DAILY Biotin 1 mg PO DAILY Diltiazem HCl [Diltiazem 24Hr ER] 240 mg PO DAILY Atorvastatin Calcium [Lipitor] 20 mg PO QHS Apixaban [Eliquis] 5 mg PO BID Insulin Glargine,Hum.rec.anlog [[place] Solostar] 20 unit SQ HS #3 insuln.pen Tramadol HCl [Rybix Odt] 50 mg PO Q6-8H PRN #60 tab.rapdis PRN Reason: Pain Levothyroxine Sodium [Synthroid] 88 mcg PO DAILY #90 tab Discontinued Valsartan [Diovan] 160 mg PO BID Potassium Chloride 20 meq PO DAILY Furosemide [Lasix] 40 mg PO BID Diclofenac Sodium [Voltaren 1% Topical Gel] 2 gm TOP QID Metoprolol Tartrate 25 mg PO BID Discharge Home Medication List Glipizide [Glucotrol] 5 mg PO BIDAC 04/10/13 [History Confirmed 07/19/16] Biotin 1 mg PO DAILY 04/02/16 [History Confirmed 07/19/16] ClonazePAM [Klonopin] 0.5 mg PO BID PRN 04/02/16 [History Confirmed 07/19/16] Liraglutide [Victoza 18 mg/3 ml Pen] 1.2 mg SQ DAILY@0800 04/02/16 [History Confirmed 07/19/16] Sertraline HCl [Zoloft] 75 mg PO DAILY 04/02/16 [History Confirmed 07/19/16] Apixaban [Eliquis] 5 mg PO BID 05/31/16 [History Confirmed 07/19/16] Atorvastatin Calcium [Lipitor] 20 mg PO QHS 05/31/16 [History Confirmed 07/19/16 ] Diltiazem HCl [Diltiazem 24Hr ER] 240 mg PO DAILY 05/31/16 [History Confirmed ] Insulin Glargine,Hum.rec.anlog [[place] Solmontez] 20 unit SQ HS #3 insuln.pen [Rx Confirmed 07/19/16] Levothyroxine Sodium [Synthroid] 88 mcg PO DAILY #90 tab 07/08/16 [Rx Confirmed 07/19/16] Tramadol HCl [Rybix Odt] 50 mg PO Q6-8H PRN #60 tab.rapdis 07/08/16 [Rx Confirmed 07/19/16] Magnesium Oxide [Mag-Ox] 400 mg PO TIDWM #100 tablet 07/22/16 [Rx] Metoprolol Tartrate [Lopressor] 25 mg PO BID #60 tablet 07/22/16 [Rx] New Discharge Medications (Rx) Magnesium Oxide [Mag-Ox] 400 mg PO TIDWM #100 tablet 07/22/16 [Rx] Metoprolol Tartrate [Lopressor] 25 mg PO BID #60 tablet 07/22/16 [Rx] O2 Device: Room Air Diet at Discharge: Cardiac, Heart Healthy Activity: No Restrictions, As Tolerated Call Office For: Worsening Symptoms, Fever over 100.5, Pain Uncontrolled By Meds - DC Summary Notes HPI/Notes: Patient is an 81 years old woman who was admitted to the hospital because of syncope. Apparently she was standing in the kitchen and then she fell down. Two weeks ago she had similar episode that she passed out she end up fracturing her left humerus. Denies having any prodromal syndromes that episode was very abrupt and sudden. She does have a past medical history significant for at least moderate aortic stenosis. Also hypertension. Her exercise capacity is limited. She does have chronic kidney dysfunction as well as a nonhealing wound on her on her right leg. Denies having any chest pain tightness squeezing pressure burning chest no significant shortness of breath. Hospital Course Note:: Discharge summary on patient named DINA BEYER admitted to [facility] on 07/19/16 by Sai Infante MD. Date of discharge is []. Pleasant 81-year-old female with 2 recent episodes of syncope in the past couple of weeks. One of them resulted in a right [place] wrist fracture 2 weeks ago. This time the patient did not fracture any bones but she had a syncopal episode none the less. Upon arrival to the hospital medications were held and she was admitted into the hospital and follow closely. Given her severe aortic stenosis it is felt that she is better off running fairly high blood pressures. Her Lasix was discontinued as was her valsartan. Blood pressures came up and she has done relatively well. At this point she is stable for discharge home she does not require further testing. She is felt not to be a candidate for aortic valve replacement or TAVR. She has reached maximum benefit of hospitalization. She is stable for discharge home. She will follow up with Dr. GALLARDO in 2 weeks. Total Time: 45 min - Physical Exam Vital Signs: Last Vital Signs Temp 97.6 F 07/22/16 07:45 Pulse 118 07/22/16 07:45 Resp 16 07/22/16 07:45 BP 148/96 07/22/16 07:45 Pulse Ox 93 07/22/16 07:45 Oxygen Pulse Oxygen Saturation 93 O2 Device Room Air Oxygen Flow Rate Fraction of Inspired Oxygen ( FIO2) Constitutional: Alert (Awake), Well nourished, Well appearing. negative: Distress Oriented to: Time, Person, Place - HEENT Head: Normal ( normocephalic) Eye: Normal (PERRL, EOMI, Sclera white) Oropharynx: Normal (Pharynx:Moist without exudate,Gums-no swelling) Nose: No Symptoms Reported (septum midline) - Respiratory/Cardiovascular Respiratory: Normal - CTA (BBS clear to auscultation without adventitious sounds ) Cardiovascular: Normal (RRR , Normal S1, S2. No murmurs, rubs, or gallops. PMI non-displaced. Carotids: no carotid bruits. No bradycardia or tachycardia. DP pulses 2+ bilaterally.) - GI Auscultation: Normal (NABS) Palpation: Normal (Soft,No rebound or guarding, non distended) Tenderness: Non tender - Musculoskeletal Back: Normal Extremities: Normal (Normal tone, Pulses 2+ No cyanosis or edema, FROM) - Integumentary Skin: Normal (Warm dry no rashes) Lymphatics: Normal (no adenopathy) - Neurologic Memory Impaired: Normal Motor Function: Normal (Motor 5/5 throughout.Normal tone, Pulses 2+ No cyanosis or edema, FROM) Cranial Nerve: Normal (CN II-XII intact sensation, strength 5/5) Cerebellar: Normal Mood Description: Normal Perception: Normal - Other Exam Other Exam Findings: Laboratory Results - last 24 hr 07/19/16 07/21/16 07/21/16 15:24 11:02 15:54 WBC RBC Hgb Hct MCV MCH MCHC RDW Plt Count MPV Neut % (Auto) Lymph % (Auto) Park % (Auto) Eos % (Auto) Baso % (Auto) Absolute Neuts (auto) Absolute Lymphs (auto) Sodium Potassium Chloride Carbon Dioxide Anion Gap BUN Creatinine Estimated GFR (MDRD) Glucose POC Capillary Glucose 191 H 197 H Calculated Osmolality Calcium Magnesium Ur Random Microalbumin 16.1 07/21/16 07/22/16 07/22/16 21:23 05:10 05:15 WBC RBC Hgb Hct MCV MCH MCHC RDW Plt Count MPV Neut % (Auto) Lymph % (Auto) Park % (Auto) Eos % (Auto) Baso % (Auto) Absolute Neuts (auto) Absolute Lymphs (auto) Sodium 137 Potassium 3.7 Chloride 95 L Carbon Dioxide 30 Anion Gap 16 BUN 32 H Creatinine 1.10 H Estimated GFR (MDRD) 48 L Glucose 115 H POC Capillary Glucose 162 H Calculated Osmolality 272 Calcium 9.7 Magnesium 1.50 L 1.50 L Ur Random Microalbumin 07/22/16 07/22/16 05:15 06:35 WBC 13.0 H RBC 5.24 Hgb 13.4 Hct 40.6 MCV 78 L MCH 25.7 L MCHC 33.1 RDW 16.8 H Plt Count 249 MPV 9.2 Neut % (Auto) 66.2 Lymph % (Auto) 22.7 Park % (Auto) 9.5 Eos % (Auto) 0.9 Baso % (Auto) 0.7 Absolute Neuts (auto) 8.58 H Absolute Lymphs (auto) 2.86 Sodium Potassium Chloride Carbon Dioxide Anion Gap BUN Creatinine Estimated GFR (MDRD) Glucose POC Capillary Glucose 120 H Calculated Osmolality Calcium Magnesium Ur Random Microalbumin
--- NOTE | 2016-07-22 11:05 | PCM.CARD ---
- Subjective Reason for visit: Follow up aortic stenosis and syncope. Doing well, wants to go home. Vital Signs: Last Vital Signs Temp 97.6 F 07/22/16 07:45 Pulse 118 07/22/16 07:45 Resp 16 07/22/16 07:45 BP 148/96 07/22/16 07:45 Pulse Ox 93 07/22/16 07:45 PE: General Appearance: Well developed. Well nourished. In no acute distress. Lungs: Chest was not overinflated. Clear to auscultation. Cardiovascular: Jugular Venous Distention: JVD not increased. Heart Rate And Rhythm: Normal. Heart Sounds: Normal. Murmurs: Systolic murmur grade 2/6 best heard at the right upper portion of the sternum were heard. Carotid Arteries: Carotid pulses were normal. No bruit in the carotid artery. Edema: Not present. Lower extremities pulses normal (including femoral popliteal and dorsalis pedis) . Musculoskeletal System: General/bilateral: No cyanosis of the fingers. Neurological: Oriented to time, place, and person. Nails: No clubbing of the fingernails. - Assessment/Plan (1) Syncope Acute R55 - SYNCOPE AND COLLAPSE Present on Admission: Yes R55 - Syncope and collapse Comment/Plan: Denies have any problems right now. Suspicion is that she had episode of syncope because of hypotension was related to multiple medications. On top of that aortic stenosis place significant role here. However considering comorbidities she is not a candidate for aortic valve replacement. (2) Atrial fibrillation with RVR Chronic I48.91 - UNSPECIFIED ATRIAL FIBRILLATION Present on Admission: Yes Comment/Plan: Rate control. Obviously issue of anticoagulation is sick critical 1. I reduce dose of Eliquis to 2.5 mg twice daily. (3) Poorly controlled diabetes mellitus Chronic E11.65 - TYPE 2 DIABETES MELLITUS WITH HYPERGLYCEMIA Present on Admission: Yes Comment/Plan: Follow up by Internal Medicine team. (4) Renal insufficiency Chronic N28.9 - DISORDER OF KIDNEY AND URETER, UNSPECIFIED Present on Admission: Yes Comment/Plan: Will watch kidney function. (5) Aortic stenosis Chronic I35.0 - NONRHEUMATIC AORTIC (VALVE) STENOSIS I35.0 - Nonrheumatic aortic (valve) stenosis Comment/Plan: Discussion as above. - Plan She can be discharged home from my standpoint of view. Will follow her up in the office.
[2016-07-22 11:18] VITALS: BP 126/82; TEMP 98.1
[2016-07-22] MEDS ORDERED: MAGNESIUM OXIDE 400 MG TAB PO SCH (12:00)
[2016-07-22 14:11] VITALS: PULSE 92
[2016-07-22] MEDS: ACETAMINOPHEN 325 MG/TAB TABLET PO PRN (14:18)
== END 2016-07-22 16:22 | DRG 307 ==
LOC: ED 13:18 → PCU 15:41
PROVIDERS: ADMIT Internal Medicine; ATTEND Hospitalist
PROC: 039B3ZZ Drainage of Right Radial Artery, Percutaneous Approach (ICD-10-PCS; principal; 2016-07-19)
DX: I35.0 Nonrheumatic aortic (valve) stenosis (principal); I50.30 Unspecified diastolic (congestive) heart failure; I48.91 Unspecified atrial fibrillation; E11.65 Type 2 diabetes mellitus with hyperglycemia; R55 Syncope and collapse; I51.9 Heart disease, unspecified; E03.9 Hypothyroidism, unspecified; F41.9 Anxiety disorder, unspecified; N28.9 Disorder of kidney and ureter, unspecified; S42.295D Other nondisplaced fracture of upper end of left humerus, subsequent encounter for fracture with routine healing; X58.XXXD Exposure to other specified factors, subsequent encounter; M79.675 Pain in left toe(s); E78.00 Pure hypercholesterolemia, unspecified; M19.90 Unspecified osteoarthritis, unspecified site; Z86.73 Personal history of transient ischemic attack (TIA), and cerebral infarction without residual deficits; Z88.8 Allergy status to other drugs, medicaments and biological substances; Z88.5 Allergy status to narcotic agent; Z79.4 Long term (current) use of insulin; Z79.899 Other long term (current) drug therapy; E79.0 Hyperuricemia without signs of inflammatory arthritis and tophaceous disease
CPT/HCPCS: 36415; 36600; 70450; 71010; 72125; 72170; 80048; 80053; 81001; 82043; 82803; 82962; 83036; 83735; 84443; 84484; 84550; 85025; 85610; 85730; 87086; 93005; 96361; 96372; 96374; 97161; 97162; 99284; G0237; J3475; J3490